=== PATIENT | female | born 1995 | race Caucasian/White ===

== ENCOUNTER → 2018-05-05 14:38 | Outpatient (CLI) | payer OTHER, SELFPAY ==
[2018-05-05 14:43] LABS: Mucous, Urine 0 SEEN /hpf (<or=2+); Red Blood Cells-Urine 0 SEEN /hpf (0-5)
[2018-05-05 16:10] LABS: Absolute Lymphocyte Count 3.09 X10^3/ul (0.83-4.51); Absolute Neutrophil Count 6.2 X10^3/uL (2.0-7.7); Basophil# 0.03 X10^3/uL; Basophil% 0.3 % (0-1); Eosinophil# 0.31 X10^3/uL; Hematocrit 40.4 % (37-47); Hemoglobin 13.6 g/dl (12.0-15.0); Lymphocyte # 3.09 X10^3/ul (4.0); Lymphocyte % 29.7 % (19-41); Mean Corp Hgb Conc 33.7 g/gl (32-36); Mean Corpuscular Hgb 29.7 pg (27.0-32.0); Mean Corpuscular Volume 88.2 fL (81-99); Mean Platelet Vol. 10.1 fl (6.2-12.0); Monocyte# 0.77 X10^3/uL; Monocyte% 7.4 % (0-10); Neutrophil # 6.18 X10^3/uL (2.7-7.7); Neutrophil % 59.3 % (47-70); Platelet Count 337 K/mm3 (150-450); RBC Distribution Width CV 11.7 % (11.6-14.6); RBC Distribution Width SD 37.2 fl (35.1-43.9); Red Blood Count 4.58 M/mm3 (4.2-5.4); White Blood Count 10.4 K/mm3 (4.4-11.0)
[2018-05-05 16:15] LABS: POSITIVE COUNT NO; POSITIVE DIFFERENTIAL NO; POSITIVE MORPHOLOGY NO
[2018-05-05 16:37] LABS: Vitamin B12 446 pg/mL (211-911); Vitamin D,25 Hydroxy 12.8 ng/mL (29.95-100.01)
[2018-05-05 16:39] LABS: ALB/GLOB Ratio 0.9 RATIO (0.9-2.4); AST(SGOT) 12 U/L (15-37); Alanine Aminotransfer ALT/SGPT 31 U/L (13-56); Albumin, Serum 3.6 g/dL (3.2-5.0); Alkaline Phosphatase 79 U/L (45-117); Anion Gap 7 (5-15); BUN 16 mg/dL (7-18); Calcium,Total 8.9 mg/dL (8.5-10.1); Chloride 107 mmol/L (98-107); Cholesterol 183 mg/dL (200); Creatinine, Serum 0.64 mg/dL (0.55-1.02); EST Glomerular Filtration Rate 121 mL/min (>60); Est Glom Filt Rate - Afr Amer 146 mL/min (>60); Globulin 4.1 g/dL (2.2-4.2); Glucose 95 mg/dL (74-106); High Density Lipoprotein 42 mg/dL; Potassium 3.8 mmol/L (3.5-5.1); Protein, Total 7.7 g/dL (6.4-8.2); Sodium Level 139 mmol/L (136-145); Thyroid Stim Hormone (TSH) 2.73 uIU/mL (0.358-3.74); Triglycerides 205 mg/dL; Very Low Density Lipoprotein 41 mg/dL (5-40)
[2018-05-05 16:52] LABS: Color, Urine Yellow (Yellow); Glucose, Dipstick Normal (Normal); Ketone-Dipstick Negative (Negative); Leukocyte Esterase-Dipstick Negative /ul (Negative); Nitrite-Dipstick Negative (Negative); Occult Blood-Urine Negative /ul (Negative); Protein-Dipstick Negative (Negative); Urine Bilirubin Dipstick Negative (Negative); Urine Clarity Clear (Clear); Urine Urobilinogen Normal (Normal); Urine pH 6.5 (5.0 - 8.0)
[2018-05-05 17:03] LABS: Hemoglobin A1c 5.5 % (4.2-6.3)
[2018-05-05 17:32] LABS: Bacteria 1+ /hpf (None Seen); Squamous Epithelial Cells - UA 0-5 SEEN /hpf (5-10); White Blood Cells 0-5 SEEN /hpf (0-5)
== END ==
PROVIDERS: Family Provider Family Medicine; PCP Family Medicine; Visit Provider Family Medicine
DX: E66.9 Obesity, unspecified (principal); R03.0 Elevated blood-pressure reading, without diagnosis of hypertension; R53.83 Other fatigue
CPT/HCPCS: 36415; 80053; 80061; 81001; 82306; 82607; 83036; 84443; 85025

== ENCOUNTER → 2018-07-21 20:03 | Outpatient (CLI) | payer OTHER, SELFPAY | LOC: SL 20:03 | PROVIDERS: Family Provider Family Medicine; PCP Family Medicine; Visit Provider Internal Medicine Critical Care Medicine | DX: G47.10 Hypersomnia, unspecified (principal); R29.818 Other symptoms and signs involving the nervous system; R06.09 Other forms of dyspnea | CPT/HCPCS: 95810 ==

== ENCOUNTER → 2018-09-07 09:49 | Outpatient (CLI) | payer OTHER, SELFPAY ==
--- NOTE | 2018-09-07 12:34 | PFT ---
INTRODUCTION: The patient is a 23-year-old female that presents for pulmonary function testing secondary to a diagnosis of dyspnea. Respiratory therapy reports good patient effort. Bronchodilators were used during testing. INTERPRETATION: Forced expiration spirometry demonstrates no evidence of a large airways obstructive ventilatory defect. There was no significant response to aerosolized bronchodilators, based upon strict ATS criteria. Spirograms are of good quality and plateau normally. Body plethysmography was performed and reveals lung volumes to be within normal limits. Diffusing capacity by single breath CO is mildly reduced at 63% of predicted. IMPRESSION: These pulmonary function studies demonstrate the presence of an isolated mild reduction in diffusing capacity, which could be related to an underlying pulmonary vascular disorder such as pulmonary hypertension. There are no previous pulmonary function studies available for comparison.
== END ==
PROVIDERS: Family Provider Family Medicine; PCP Family Medicine; Referring Provider Internal Medicine Critical Care Medicine; Visit Provider Internal Medicine Critical Care Medicine
DX: R06.09 Other forms of dyspnea (principal)
CPT/HCPCS: 94060; 94726; 94729

== ENCOUNTER → 2018-11-23 20:00 | Outpatient (CLI) | payer OTHER, SELFPAY | PROVIDERS: Family Provider Family Medicine; PCP Family Medicine; Referring Provider Nurse Practitioner Acute Care; Visit Provider Nurse Practitioner Acute Care | DX: G47.33 Obstructive sleep apnea (adult) (pediatric) (principal); R94.2 Abnormal results of pulmonary function studies | CPT/HCPCS: 95811 ==

== ENCOUNTER → 2019-02-22 | Outpatient (CLI) | payer OTHER, SELFPAY ==
[2018-12-20 09:03] VITALS: BMI 50.5
[2019-02-22 13:07] LABS: Vitamin D,25 Hydroxy 32.4 ng/mL (29.95-100.01)
== END | disposition home or self-care (01) ==
LOC: MFPLAB 11:09
PROVIDERS: Family Provider Family Medicine; PCP Family Medicine; Referring Provider Family Medicine; Visit Provider Family Medicine
DX: E55.9 Vitamin D deficiency, unspecified (principal)
CPT/HCPCS: 36415; 82306

== ENCOUNTER → 2019-06-08 | Outpatient (CLI) | payer OTHER, SELFPAY ==
[2019-04-05 10:42] VITALS: BMI 52.7
== END | disposition home or self-care (01) ==
LOC: MFPLAB 14:25
PROVIDERS: Family Provider Family Medicine; PCP Family Medicine; Referring Provider Family Medicine; Visit Provider Family Medicine
DX: E55.9 Vitamin D deficiency, unspecified (principal)
CPT/HCPCS: 36415; 82306

== ENCOUNTER → 2019-06-28 12:52 | Outpatient (CLI) | payer OTHER, SELFPAY ==
[2019-04-05 10:42] VITALS: BMI 52.7
--- NOTE | 2019-06-29 07:58 | PFT ---
INTRODUCTION: The patient is a 24-year-old female that presents for pulmonary function studies secondary to a diagnosis of MANUEL. Respiratory therapy reports good patient effort. Bronchodilators were used during testing. INTERPRETATION: Forced expiration spirometry demonstrates no evidence of a large airways obstructive ventilatory defect. There was no significant response to aerosolized bronchodilators. Spirograms are of good quality and plateau normally. Body plethysmography was performed and reveals a decrease TLC to 4.16 L, 84% of predicted, indicative of a mild restrictive ventilatory impairment. Diffusing capacity by single breath CO is moderately reduced at 57% of predicted. IMPRESSION: Isolated mild restrictive ventilatory impairment with disproportionate reduction in diffusing capacity.
== END ==
PROVIDERS: Family Provider Family Medicine; PCP Family Medicine; Referring Provider Internal Medicine Critical Care Medicine; Visit Provider Internal Medicine Critical Care Medicine
DX: G47.33 Obstructive sleep apnea (adult) (pediatric) (principal)
CPT/HCPCS: 94060; 94726; 94729

== ENCOUNTER → 2019-11-08 09:32 | Outpatient (CLI) | payer OTHER, SELFPAY ==
[2019-07-13 14:07] VITALS: BMI 52.7
[2019-11-08 12:46] LABS: Vitamin D,25 Hydroxy 20.4 ng/mL (29.95-100.01)
== END ==
PROVIDERS: PCP Family Medicine; Visit Provider Family Medicine
DX: E55.9 Vitamin D deficiency, unspecified (principal)
CPT/HCPCS: 36415; 82306

== ENCOUNTER → 2020-03-06 14:19 | Outpatient (CLI) | payer MEDICAID, SELFPAY ==
[2020-01-02 14:08] VITALS: BMI 52.7
[2020-03-06 18:09] LABS: T4 Free Direct 0.98 ng/dL (0.76-1.46)
[2020-03-09 00:47] LABS: Anti-Thyroglobulin AB < 1.0 IU/mL (0.0-0.9); Thyroglobulin, Serum Qt. 14.2 ng/mL (1.5-38.5); Thyroid Peroxidase AB < 9 IU/mL (0-34)
== END ==
PROVIDERS: PCP Family Medicine; Visit Provider Family Medicine
DX: E01.0 Iodine-deficiency related diffuse (endemic) goiter (principal)
CPT/HCPCS: 36415; 84432; 84439; 84443; 86376; 86800

== ENCOUNTER → 2020-03-16 15:59 | Outpatient (CLI) | payer MEDICAID, SELFPAY ==
[2020-01-02 14:08] VITALS: BMI 52.7
--- NOTE | 2020-03-16 16:06 | US_ITS ---
STUDY: THYROID ULTRASOUND REASON FOR EXAM: Female, 25 years old. THYROMEGALY ON EXAM TECHNIQUE: Ultrasound evaluation of the thyroid was performed with real-time and static barber-scale imaging. COMPARISON: None. FINDINGS: RIGHT LOBE: The right lobe of the thyroid gland is mildly enlarged and measures 5.1 cm x 2.1 cm x 2 cm. There is a heterogeneous echotexture. There are no demonstrated solid, cystic or complex lesions. LEFT LOBE: The left lobe of the thyroid gland is slightly enlarged and measures 5 cm x 1.9 cm x 1.5 cm. There is a heterogeneous echotexture. There are no demonstrated solid, cystic or complex lesions. ISTHMUS: The isthmus measures 2.0 mm. The regional lymph nodes are normal. US/Thyroid IMPRESSION: Mildly enlarged heterogeneous thyroid gland. Electronically Signed: Zackary Mathias, at 8:50 EDT , Service support ,
== END ==
PROVIDERS: PCP Family Medicine; Referring Provider Family Medicine; Visit Provider Family Medicine
DX: E01.0 Iodine-deficiency related diffuse (endemic) goiter (principal)
CPT/HCPCS: 76536

== ENCOUNTER 2020-08-16 11:11 | Emergency (ER) | payer MEDICAID, SELFPAY ==
[2020-01-02 14:08] VITALS: BMI 52.7
[2020-08-16 11:13] VITALS: BP 174/96; PULSE 62; RESP 15; TEMP 36.2; O2SAT 98; BMI 40.4
--- NOTE | 2020-08-16 11:27 | ED.VIS.GEN ---
History of Present Illness Chief Complaint: Abd Pain Informant: Patient Onset: Yesterday Current Severity: Mild Maximum Severity: Moderate Narrative: Patient presents secondary to epigastric abdominal pain. She states she woke at 2 AM yesterday morning with pain in her epigastrium. During the day pain was shooting into her back. She was able to eat yesterday and states food did not really change her pain. She has not had much of an appetite and has not eaten today. She had 2 episodes of vomiting, nonbloody and nonbilious. She denies diarrhea. No fever or chills. She denies history of gallbladder problems or any prior problems with her pancreas. She does not drink alcohol. - Past Medical History (1) Anxiety and depression Status: Chronic (2) Asthma Status: Chronic (3) MANUEL (obstructive sleep apnea) Status: Chronic Comment: BiPAP 10/6 cmH2O Past Medical History - Allergies and Home Meds Allergies/Adverse Reactions: Allergies No Known Allergies Allergy (Verified 08/16/20 11:12) Primary Care Physician: Dalton Chanel MD [Primary Care Provider] - Prior records reviewed: Yes Lives: Spouse/ Significant Other Smoking Status: Former smoker Review of Systems General: Denies: Chills, Fever Eyes: Denies: Visual changes - bilaterally ENT: Denies: Bilateral ear pain Cardiovascular: Denies: Chest pain Respiratory: Denies: Dyspnea, Cough Gastrointestinal: Reports: Abdominal pain, Nausea, Vomiting. Denies: Diarrhea Genitourinary: Denies: Dysuria Musculoskeletal: Denies: Swelling, Extremity Pain Skin: Denies: Rash Hematologic: Denies: Easy bruising, Easy bleeding Allergy: Denies: Uticaria Physical Exam Vital Signs/Narrative: Vital Signs Temp Pulse Resp BP Pulse Ox 08/16/20 11:13 97.2 F L 62 15 174/96 H 98 Inital Vital Signs reviewed: Yes General: Well nourished, Well developed Head: Normocephalic ENT: Moist mucous membranes Neck: Supple Cardiovascular: Regular rate, Regular rhythm Respiratory: No distress, CTA bilaterally Abdomen: Soft, Normal bowel sounds, Tender - Minimal tenderness in the epigastrium.. Negative for: Guarding, Rebound tenderness Back: Nontender Extremities: Nontender Skin: Normal color Neurological: Alert, Oriented x3 Psychological: Normal affect Diagnostic/Tx/Re-eval Laboratory Results 08/16/20 08/16/20 11:30 11:30 WBC 10.7 RBC 4.93 Hgb 14.2 Hct 42.5 MCV 86.2 MCH 28.8 MCHC 33.4 RDW Std Deviation 35.8 RDW Coeff of [place] 11.3 L Plt Count 367 MPV 9.3 Immature Gran % (Auto) 0.400 Neut % (Auto) 74.4 H Lymph % (Auto) 17.7 L Cherry % (Auto) 5.8 Eos % (Auto) 1.4 Baso % (Auto) 0.3 Absolute Neuts (auto) 8.0 H Absolute Lymphs (auto) 1.89 Nucleated RBC % 0 Sodium 139 Potassium 3.8 Chloride 106 Carbon Dioxide 27.0 Anion Gap 6 BUN 8 Creatinine 0.77 Estim Creat Clear Calc 91.59 Est GFR (MDRD) Af Amer 116 Est GFR (MDRD) Non-Af 96 BUN/Creatinine Ratio 10.3 Glucose 121 H Calcium 9.5 Total Bilirubin 0.30 Direct Bilirubin 0.10 AST 13 L ALT 41 Alkaline Phosphatase 89 Total Protein 8.0 Albumin 3.8 Globulin 4.2 Lipase 44 L - Medical Decision Making Patient was given IV dose of Protonix here. Repeat evaluation she is complaining of some back pain will be given a single dose of [place] here. We will start her on antacids at home. She will take Tylenol to help control pain. Return instructions are provided. ED Disposition - Plan for ED Patient: Disposition: Home or Assisted Living Diagnosis: Epigastric pain Instructions: ED Epigastric Pain [facility] Prescriptions: Omeprazole [Prilosec] 20 mg PO DAILY #30 cap Transmission Status: Pending to [id number] Referrals: Dalton Chanel MD [Primary Care Provider] - 1 Week if not improving
[2020-08-16 11:52] LABS: Absolute Lymphocyte Count 1.89 X10^3/uL (0.83-4.51); Basophil# 0.03 X10^3/uL; Basophil% 0.3 % (0-1); Eosinophil# 0.15 X10^3/uL; Eosinophils% 1.4 % (0-5); Hematocrit 42.5 % (37-47); Hemoglobin 14.2 g/dL (12.0-15.0); Lymphocyte # 1.89 X10^3/ul (4.0); Lymphocyte % 17.7 % (19-41); Mean Corp Hgb Conc 33.4 g/dL (32-36); Mean Corpuscular Hgb 28.8 pg (27.0-32.0); Mean Corpuscular Volume 86.2 fL (81-99); Mean Platelet Vol. 9.3 fl (6.2-12.0); Monocyte# 0.62 X10^3/uL; Monocyte% 5.8 % (0-10); NRBC Flagged by Analyzer 0 % (0-5); Neutrophil # 7.97 X10^3/uL (2.7-7.7); Neutrophil % 74.4 % (47-70); Platelet Count 367 K/mm3 (150-450); RBC Distribution Width CV 11.3 % (11.6-14.6); RBC Distribution Width SD 35.8 fl (35.1-43.9); Red Blood Count 4.93 M/mm3 (4.2-5.4); White Blood Count 10.7 K/mm3 (4.4-11.0)
[2020-08-16 11:54] LABS: AST(SGOT) 13 U/L (15-37); Alanine Aminotransfer ALT/SGPT 41 U/L (13-56); Albumin, Serum 3.8 g/dL (3.2-5.0); Alkaline Phosphatase 89 U/L (45-117); Anion Gap 6 (5-15); BUN 8 mg/dL (7-18); BUN/Creat Ratio 10.3 RATIO (10-20); Calcium,Total 9.5 mg/dL (8.5-10.1); Chloride 106 mmol/L (98-107); Creatinine, Serum 0.77 mg/dL (0.55-1.02); EST Glomerular Filtration Rate 96 mL/min (>60); Est Glom Filt Rate - Afr Amer 116 mL/min (>60); Estimated Creatinine Clearance 91.59 ml/min; Globulin 4.2 g/dL (2.2-4.2); Glucose 121 mg/dL (74-106); Lipase 44 U/L (73-393); Potassium 3.8 mmol/L (3.5-5.1); Sodium Level 139 mmol/L (136-145)
[2020-08-16] MEDS: 0.9% Normal Saline 1,000 ML 150 ML IV (12:14)
[2020-08-16] MEDS: HYDROcodone Bitartrate/Apap 5/325 Tablet PO (12:51)
[2020-08-16 12:53] VITALS: BP 132/88; PULSE 75; RESP 16; O2SAT 97
== END 2020-08-16 12:54 | disposition home or self-care (01) ==
PROVIDERS: Emergency Provider Emergency Medicine; PCP Family Medicine
DX: R10.13 Epigastric pain (principal); M54.9 Dorsalgia, unspecified; R11.2 Nausea with vomiting, unspecified; F41.9 Anxiety disorder, unspecified; F32.9 Major depressive disorder, single episode, unspecified; G47.33 Obstructive sleep apnea (adult) (pediatric); J45.909 Unspecified asthma, uncomplicated; Z79.899 Other long term (current) drug therapy; Z87.891 Personal history of nicotine dependence
CPT/HCPCS: 80048; 80076; 83690; 85025; 99282; J7030; A4216

== ENCOUNTER → 2020-08-17 16:09 | Outpatient (CLI) | payer MEDICAID, SELFPAY ==
[2020-08-16 11:13] VITALS: BMI 40.4
--- NOTE | 2020-08-17 16:34 | US_ITS ---
STUDY: ABDOMINAL ULTRASOUND - RIGHT UPPER QUADRANT REASON FOR VISIT: Female, 25 years old. Right upper quadrant pain for 3 days, vomiting TECHNIQUE: Ultrasound evaluation of the right upper quadrant was performed with real-time and static barber-scale imaging. TECHNICAL QUALITY: Adequate. COMPARISON: None. FINDINGS: Liver: The liver measures 20.8 cm. There is increased echogenicity of the liver. The bile ducts are within normal limits. There is hepatic color flow. The direction of portal flow is hepatopetal. There is no demonstrated mass lesion. Gallbladder: Normal distended gallbladder. The gallbladder wall measures 4.5 mm. There is a positive sonographic Carter''s sign. There is mild pericholecystic fluid. There are multiple gallstones Common Bile Duct (C.B.D.): The common bile duct measures 5 mm. Pancreas: Not well visualized due to gas obscuration Right Kidney: Normal size of the right kidney. The right kidney measures 11.6 x 6.7 x 4.8 cm. Normal renal cortex. The right cortex measures 1.5 cm. There is no demonstrated renal mass or cyst. There is no right hydronephrosis. US/Abdomen Limited IMPRESSION: 1. Cholecystitis and cholecystolithiasis. No biliary dilation. 2. Hepatic steatosis. Electronically Signed: Lenard José, at 17:55 EDT Tel , Service support ,
== END ==
PROVIDERS: PCP Family Medicine; Referring Provider Family Medicine; Visit Provider Family Medicine
DX: R10.11 Right upper quadrant pain (principal)
CPT/HCPCS: 76705

== ENCOUNTER 2020-08-17 19:24 | Inpatient (IN) | payer MEDICAID, SELFPAY ==
[2020-08-16 11:13] VITALS: BMI 40.4
[2020-08-17 19:25] VITALS: BP 197/92; PULSE 114; RESP 20; TEMP 36.8; O2SAT 98; BMI 51.3
[2020-08-17 19:48] LABS: Absolute Lymphocyte Count 1.61 X10^3/uL (0.83-4.51); Basophil# 0.05 X10^3/uL; Basophil% 0.3 % (0-1); Eosinophil# 0.18 X10^3/uL; Eosinophils% 1.1 % (0-5); Hematocrit 41.5 % (37-47); Hemoglobin 13.5 g/dL (12.0-15.0); Lymphocyte # 1.61 X10^3/ul (4.0); Lymphocyte % 10.1 % (19-41); Mean Corp Hgb Conc 32.5 g/dL (32-36); Mean Corpuscular Hgb 28.5 pg (27.0-32.0); Mean Corpuscular Volume 87.6 fL (81-99); Mean Platelet Vol. 9.3 fl (6.2-12.0); Monocyte# 0.96 X10^3/uL; NRBC Flagged by Analyzer 0 % (0-5); Neutrophil # 13.03 X10^3/uL (2.7-7.7); Neutrophil % 82.1 % (47-70); Platelet Count 341 K/mm3 (150-450); RBC Distribution Width CV 11.5 % (11.6-14.6); RBC Distribution Width SD 36.8 fl (35.1-43.9); Red Blood Count 4.74 M/mm3 (4.2-5.4); White Blood Count 15.9 K/mm3 (4.4-11.0)
[2020-08-17] MEDS: 0.9% Normal Saline 1,000 ML 1000 ML IV (19:56)
[2020-08-17] MEDS: Morphine 4 MG/ML Syringe IV (19:56)
[2020-08-17] MEDS: Ondansetron 4 MG/2 ML Vial IV (19:56)
--- NOTE | 2020-08-17 19:58 | ED.DCSUM_ITS ---
History of Present Illness Chief Complaint: Abd Pain Informant: Patient Onset: Yesterday Context: Gradual Onset Timing: Continuous Current Severity: Moderate Maximum Severity: Moderate Narrative: Patient is a 25-year-old female with history of depression who presents to the emergency department abdominal pain. The patient's pain started Thursday. She said it was mostly in the midepigastric area. It was worse after eating. She was seen here yesterday morning. At that time, she had an unremarkable work-up. She states after discharge, her pain continued to worsen and migrated to her right upper quadrant. She followed with her primary care today. Outpatient ultrasound was done which showed evidence of cholecystitis. The patient was sent here for further evaluation. She denies fevers but does admit to nausea. She has no history of prior abdominal surgery. Prior similar symptoms: Yes Recent Illness/Hospitalization: No Past Medical History - Allergies and Home Meds Allergies/Adverse Reactions: Allergies No Known Allergies Allergy (Verified 08/17/20 19:24) Primary Care Physician: Dalton Chanel MD [Primary Care Provider] - Prior records reviewed: Yes Past Medical History: - - Depression, sleep apnea Surgical History: noncontributory Smoking Status: Current some day smoker Review of Systems General: Denies: Chills, Fever, Sweats Eyes: Denies: Visual changes - bilaterally, Diplopia ENT: Denies: Rhinorrhea, Sore throat Cardiovascular: Denies: Chest pain, Palpitations Respiratory: Denies: Dyspnea, Cough, Dyspnea on exertion Gastrointestinal: Reports: Abdominal pain, Nausea. Denies: Vomiting, Diarrhea, Melena, Hematochezia Genitourinary: Denies: Dysuria, Hematuria, Frequency Musculoskeletal: Denies: Back pain, Extremity Pain Skin: Denies: Rash, Wounds Neurological: Denies: Headache, Weakness, Numbness Physical Exam Vital Signs/Narrative: Vital Signs Temp Pulse Resp BP Pulse Ox 08/17/20 19:25 98.3 F 114 H 20 H 197/92 H 98 Inital Vital Signs reviewed: Yes General: Well nourished, Well developed, No Acute Distress Head: Normocephalic, Atraumatic Eyes: Perrl, EOMI ENT: Moist mucous membranes, No rhinorrhea Neck: Supple, Nontender Cardiovascular: Regular rate, Regular rhythm, No murmurs Respiratory: No distress, CTA bilaterally, Chest nontender Abdomen: Soft, Nondistended, Normal bowel sounds, Tender, Carter's sign Back: Nontender, Normal Inspection Extremities: Nontender, No edema Skin: Normal color, No rash Neurological: Alert, Oriented x3, Cranial nerves II-XII grossly intact, Normal Strength, Normal Sensation Psychological: Normal affect, Normal Mood Diagnostic/Tx/Re-eval Abnormal Lab Results 08/17/20 08/17/20 08/17/20 19:40 19:40 19:40 WBC 15.9 H RBC 4.74 Hgb 13.5 Hct 41.5 MCV 87.6 MCH 28.5 MCHC 32.5 RDW Std Deviation 36.8 RDW Coeff of Katy 11.5 L Plt Count 341 MPV 9.3 Immature Gran % (Auto) 0.400 Neut % (Auto) 82.1 H Lymph % (Auto) 10.1 L [place] % (Auto) 6.0 Eos % (Auto) 1.1 Baso % (Auto) 0.3 Absolute Neuts (auto) 13.0 H Absolute Lymphs (auto) 1.61 Nucleated RBC % 0 Sodium 137 Potassium 3.6 Chloride 104 Carbon Dioxide 25.0 Anion Gap 8 BUN 9 Creatinine 0.88 Estim Creat Clear Calc 80.14 Est GFR (MDRD) Af Amer 100 Est GFR (MDRD) Non-Af 83 BUN/Creatinine Ratio 10.3 Glucose 214 H Calcium 9.2 Total Bilirubin 0.50 AST 10 L ALT 29 Alkaline Phosphatase 86 Total Protein 7.9 Albumin 3.5 Globulin 4.4 H Albumin/Globulin Ratio 0.8 L Lipase 127 Serum , Qual NEGATIVE - Medical Decision Making Patient presents with right upper quadrant pain. Outpatient ultrasound was rev iewed. It does show evidence of acute cholecystitis. I did discuss the patient promptly with Dr. Johnson, on-call for surgery. Patient was covered with broad- spectrum antibiotics. The plan will be to admit for pain control and antibiotics with surgery tomorrow. The patient is comfortable with this plan of care. Impression 1. Acute cholecystitis ED Disposition - Plan for ED Patient: Referrals: Dalton Chanel MD [Primary Care Provider] -
[2020-08-17 20:05] LABS: ALB/GLOB Ratio 0.8 RATIO (0.9-2.4); AST(SGOT) 10 U/L (15-37); Alanine Aminotransfer ALT/SGPT 29 U/L (13-56); Albumin, Serum 3.5 g/dL (3.2-5.0); Alkaline Phosphatase 86 U/L (45-117); Anion Gap 8 (5-15); BUN 9 mg/dL (7-18); BUN/Creat Ratio 10.3 RATIO (10-20); Calcium,Total 9.2 mg/dL (8.5-10.1); Chloride 104 mmol/L (98-107); Creatinine, Serum 0.88 mg/dL (0.55-1.02); EST Glomerular Filtration Rate 83 mL/min (>60); Est Glom Filt Rate - Afr Amer 100 mL/min (>60); Estimated Creatinine Clearance 80.14 ml/min; Globulin 4.4 g/dL (2.2-4.2); Glucose 214 mg/dL (74-106); Lipase 127 U/L (73-393); Potassium 3.6 mmol/L (3.5-5.1); Protein, Total 7.9 g/dL (6.4-8.2); Sodium Level 137 mmol/L (136-145)
[2020-08-17 20:16] LABS: Internal QC Validated? YES +Cl - CLEAR BKGD; Pregnancy, Serum, hCG Quali. NEGATIVE Negative
[2020-08-17 21:30] VITALS: BP 177/94; PULSE 96; RESP 18; TEMP 35.7; O2SAT 99
[2020-08-17 21:57] VITALS: BMI 50.3
[2020-08-17 22:01] VITALS: BP 164/80; PULSE 99; RESP 18; TEMP 37.2; O2SAT 99
[2020-08-17 22:10] VITALS: BMI 50.4
[2020-08-17] MEDS: Lactated Ringers 1,000 ML 125 ML IV (22:35)
[2020-08-18] VITALS (13 sets, daily range): BP systolic 125–145; BP diastolic 75–104; PULSE 80–122; RESP 16–18; TEMP 36.8–37.6; O2SAT 91–100; BMI 50.3
--- NOTE | 2020-08-18 01:12 | EKG12_ITS ---
Test Reason : PRE-OP Blood Pressure : / mmHG Vent. Rate : 100 BPM Atrial Rate : 100 BPM P-R Int : 136 ms QRS Dur : 080 ms QT Int : 356 ms P-R-T Axes : 042 019 036 degrees QTc Int : 459 ms Normal sinus rhythm Normal ECG Confirmed by CASSIE ARTEAGA, KATYA ([id number]), mapping editor MAX RAMIREZ ([id number]) on 08/22/2020 10:50:40 AM Referred By: DR BLANCO Confirmed By:KATYA MATTHEWS MD
[2020-08-18] MEDS: Morphine 4 MG/ML Syringe IV ×4 (01:33→17:40)
[2020-08-18] MEDS: 0.9% Saline Lock 10 ML Syringe IV ×3 (01:33→17:40)
[2020-08-18] MEDS: Lactated Ringers 1,000 ML 125 ML IV ×3 (05:45→17:49)
[2020-08-18 09:08] LABS: Absolute Lymphocyte Count 2.29 X10^3/uL (0.83-4.51); Absolute Neutrophil Count 8.5 X10^3/uL (2.0-7.7); Basophil# 0.05 X10^3/uL; Basophil% 0.4 % (0-1); Eosinophil# 0.36 X10^3/uL; Eosinophils% 2.9 % (0-5); Hemoglobin 12.7 g/dL (12.0-15.0); Lymphocyte # 2.29 X10^3/ul (4.0); Lymphocyte % 18.6 % (19-41); Mean Corp Hgb Conc 31.8 g/dL (32-36); Mean Corpuscular Hgb 28.3 pg (27.0-32.0); Mean Corpuscular Volume 89.1 fL (81-99); Mean Platelet Vol. 9.5 fl (6.2-12.0); Monocyte# 1.04 X10^3/uL; Monocyte% 8.5 % (0-10); NRBC Flagged by Analyzer 0 % (0-5); Neutrophil # 8.52 X10^3/uL (2.7-7.7); Neutrophil % 69.3 % (47-70); Platelet Count 288 K/mm3 (150-450); RBC Distribution Width CV 11.7 % (11.6-14.6); RBC Distribution Width SD 37.5 fl (35.1-43.9); Red Blood Count 4.49 M/mm3 (4.2-5.4); White Blood Count 12.3 K/mm3 (4.4-11.0)
[2020-08-18 09:33] LABS: Anion Gap 6 (5-15); BUN 7 mg/dL (7-18); BUN/Creat Ratio 12.2 RATIO (10-20); Calcium,Total 9.1 mg/dL (8.5-10.1); Chloride 107 mmol/L (98-107); Creatinine, Serum 0.58 mg/dL (0.55-1.02); EST Glomerular Filtration Rate 134 mL/min (>60); Est Glom Filt Rate - Afr Amer 162 mL/min (>60); Estimated Creatinine Clearance 121.59 ml/min; Glucose 107 mg/dL (74-106); Sodium Level 137 mmol/L (136-145)
--- NOTE | 2020-08-18 10:58 | PCM.HP.BLA ---
History and Physical Date of Admission: 08/17/20 Chief Complaint: abdominal pain History of Present Illness: 25 y/o WF with super morbid obesity - BMI >51 - presents with abdominal pain. She states that she had sudden onset at 08/15. She states that it is primarily in the epigastric area. She was seen in the ED on 08/16 and then discharged to home. She underwent US on 08/17/2020 - and findings of thickened gallbladder wall with pericholecystic fluid and multiple gallstones - c/w cholecystitis. She went to the ED on 08/17/2020, still with abdominal pain - WBC was 15.9k on admission with left shift of differential. Normal LFT's. She denies biliary obstructive signs such as jaundice or icterus. Has nausea but denies emesis. She has not had previous abdominal surgery. Past Medical History: MANUEL morbid obesity Past Surgical History: Tonsillectomy ear tubes placement Medications: sertraline omprazole abilify Allergies: Has no known drug allergies Social history: TOB use denies Lives with Review of Systems: General - denies fevers, denies weight loss, denies anorexia Cardiovascular denies chest pain, denies history of heart attack Pulmonary followed by pulmonary clinic for MANUEL and abnormal PFTs felt to be due to patient's body habitus Gastrointestinal as per HPI, denies swallowing problems Neurological has occasional headaches, denies numbness/weakness of extremities, denies seizures Genitourinary denies burning with urination, denies blood in urine Hematological denies spontaneous/prolonged bleeding Skin denies open non healing wounds Musculoskeletal denies history of fractures, denies arthritis Endocrine denies diabetes, no thyroid problems, is super morbidly obese Psychological denies hallucinations Physical examination: Vital signs Temp 98.2F but presently 99/6F HR 101 BP 125/80 RR 16 General WD/WN WF in no apparent distress, alert and oriented, not septic appearing Head Normocephalic. EOM intact with sclera clear and no icterus noted. Neck is supple with no jugular venous distention noted. Trachea is midline. Lungs normal breath sounds. No rales/rhonchi/wheezing noted. No labored breathing noted, such as retractions. No cough heard. Heart normal heart sounds. No rubs/clicks/murmurs noted. regular . Abdomen soft but tender in epigastrium and right upper quadrant with Carter's signs, difficult to determine if any masses due to body habitus Extremities no calf tenderness noted. No pitting edema noted. Genitourinary/Rectal deferred Skin normal skin integrity. Neurological non focal. Psychological normal affect, patient is calm and appropriate Impression: acute cholecystitis with cholelithiasis Discussion/Plan: I have discussed the above with the patient. I have offered the patient the procedure of laparoscopic cholecystectomy. I have explained the procedure to the patient. I have counseled the patient as to the risks of the procedure, including but not limited to: infection, bleeding, injury to any blood vessels/nerves, scar tissue, injury to any intraabdominal organs, injury to kidney/ureters, injury to bowel/bladder, injury to the common bile duct/biliary tree, bile leakage, intraabdominal abscess/bleeding, hernias at incisional sites, wound infections, possible open procedure, complications of anesthesia, postoperative pneumonia/cardiac problems/blood clots etc. the patient understands. The patient was offered a surgery/procedure. The provider and patient have discussed in detail the risk of exposure to and/or potential harm posed by the COVID-19 virus with having a surgery/procedure at this time versus the risk of delaying the surgery/procedure. It is not possible to know either the risk of delaying the surgery or procedure or chance of getting an infection with perfect accuracy, but a joint decision was made between the patient and the provider to proceed at this time with the scheduled surgery/procedure. She wishes to proceed I have answered all questions to the patient?s satisfaction and the patient has no further questions.
--- NOTE | 2020-08-18 11:28 | NURSING ---
Pt being transported to surgery via bed at this time.
--- NOTE | 2020-08-18 11:37 | NURSING ---
Off unit to OR.
--- NOTE | 2020-08-18 12:00 | GALL_PTH ---
PATIENT: FLORENCIA VILLARREAL LOC: [facility]3 U#:[id number] AGE/SX: 25/F ROOM: MS319 RE08/17/[address]: Dr. Stephanie Johnson MD : [id number] BED: 1 DIS: 08/19/2020 SPEC #: [id number] RECD: 08/19/20 10:31 STATUS: TAYLOR REKaleb #: [id number] PRABHAKAR: 08/18/20 12:[address]: Stephanie Johnson DEPT: SURGICAL PATHOLOGY RECD BY: Judy Santana ENTERED: 08/20/20 08:21 SP TYPE: CAMERON AVENDANO DR: Dr. Dalton Chanel MD Tissues: Gallbladder, NOS Procedures: Surgery Specimen Level III HEADER OPERATION: Laparoscopic cholecystectomy converted to open PRE-OP DIAGNOSIS: Acute cholecystitis with cholelithiasis TISSUE SUBMITTED: Gallbladder MICROSCOPIC DIAGNOSIS Gallbladder, cholecystectomy: Acute and chronic cholecystitis with denudation of the mucosa and cholelithiasis. AM:adele 08/21/20 MICROSCOPIC DESCRIPTION Slides are reviewed. GROSS DESCRIPTION Received is one container labeled with the patient's name and designated gallbladder. The specimen consists of a gallbladder in multiple pieces. The largest piece of gallbladder measures 6 cm in length and 3 cm in diameter. The smaller pieces measure in aggregate 5 x 5 x 2 cm. The serosa is congested and hemorrhagic. The mucosa is also congested and hemorrhagic. Also present in the container are multiple, multifaceted, greenish-brown stones measuring in aggregate 4 x 3.5 x 1.5 cm and 0.5 to 1.2 cm in diameter. Sections of the gallbladder wall reveal congested and hemorrhagic cut surfaces. The gallbladder wall measures up to 1 cm in thickness. Some of the stones are embedded in the gallbladder wall. Obvious cystic duct is not identified. [place] sections are submitted in two cassettes. / SJ:adele 08/20/20 TC:2 CPT: 51504
--- NOTE | 2020-08-18 12:55 | CASEMGMT ---
RN CM attempted to complete RN CM assessment at this time. Patient is out of room and at surgery. Will attempt again at a later time.
[2020-08-18] MEDS: Bupiv/Epi 0.25% 30 ML Vial (14:00)
--- NOTE | 2020-08-18 14:32 | PCM.OPRPT ---
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 Appropriate time out protocol was followed. The patient was placed in the supine position. The patient was then placed under general endotracheal anesthesia by the anesthesia provider. The abdomen was then prepped with a sterile surgical skin preparation and sterile surgical drapes were placed. An area superior to the umbilical dimple was grasped with penetrating clamps and the skin and subcutaneous tissues were infiltrated with 0.25% marcaine with epinephrine. A skin incision was then made with a 15 blade scalpel. The anterior abdominal wall was elevated and a Veress needle was carefully inserted into the intraabdominal cavity. It was checked to be in the proper position with a normal saline drop test. A CO2 pneumoperitoneum was then created. Once this was achieved, then the Veress needle was removed and an 11mm trocar was placed in its stead. A 10mm laparoscope was then inserted into the trocar and careful attention was directed to the intraabdominal contents. There was no evidence of injury to any intraabdominal organs from insertion of the Veress needle or the trocar. Under direct visualization, a 5mm subxiphoid trocar and two lateral 5mm right subcostal trocars were placed. The skin and subcutaneous tissues at these sites were infiltrated with 0.25% marcaine with epinephrine prior to placement of these trocars. Attention was then directed to the right upper quadrant of the abdomen. The gallbladder was grossly distended. There were omental adhesions to the free surface of the gallbladder. The wall was thickened and had inflammatory oozing. Findings were consistent with acute on chronic cholecystitis. Needle aspiration revealed hydrops. Graspers were placed in the lateral trocars to grasp the distal aspect of the gallbladder and direct it cephalad and to grasp the gallbladder laterally to direct it laterally. As stated, the gallbladder wall had inflammatory oozing and thus was difficult to grasp intermittently. The dense omental adhesions were taken down by blunt dissection. Dissection then was attempted to identify the area of the triangle of Calot. It was not able to be identifed due to the dense inflammation. Therefore dissection was attempted to delineate out the gallbladder on its lateral aspects. Dissection was done with electrocautery. Every attempt to dissect out the gallbladder wall resulted in a large amount of inflammatory bleeding. Therefore due to the amount of inflammation and the bleeding due to this, I aborted the laparoscopic procedure and proceeded to an open cholecystectomy for better control of bleeding. The right lower ribs were palpated out, and a right subcostal incision was made with a 10 blade scalpel and carried down to the subcutaneous tissues. Any hemorrhage was adequately controlled with electrocoagulation. The anterior abdominal fascia was then carefully divided with electrocautery. The right rectus abdominis muscle was then carefully divided and appropriate hemostatic control was applied to all blood vessels. The posterior fascial sheath and transversalis fascia was then divided thus entering into the abdominal cavity. This was carefully done to avoid any injury to any intra-abdominal organs. A Bookwalter retractor was used for increased operative exposure. Attention was then directed to the undersurface of the liver. The gallbladder was visualized. As stated previously, it appeared grossly edematous and distended and with thickened inflamed gallbladder wall. The gallbladder was grasped distally to retract it from the liver bed. It was dissected from the liver bed in a retrograde fashion using electrocautery. There was a large amount of inflammation with hemorrhagic oozing and as the gallbladder wall was thickened and parts of it were very densely inflamed. The posterior wall of the gallbladder was densely adherent to the liver bed which precluded its separation, therefore this portion of the gallbladder was left in situ. The gallbladder contents were loculated and hemorrhagic. The stones appeared to be embedded in the wall tissues. Hemostasis was controlled by pressure and electrocautery. Once the gallbladder was then from the liver bed (which required careful dissection and time), then blunt dissection was used on the proximal portion of the gallbladder in attempt to delineate the triangle of Calot. There was too much dense inflammation in this area. Therefore the Mandujano's pouch of the gallbladder was also left in situe. The mucosa of the gallbladder was cauterized. All stones that were palpated from within the gallbladder were removed. Ligaclips were placed on bleeding vessels. Once, the major portion of the gallbladder was removed and hemostasis was controlled, then surgicel was applied to the areas of inflammatory oozing. Electrocautery was applied to the mucosa of the gallbladder. The area was the vigorously irrigated with warmed normal saline and all irrigant was aspirated out. A 15 Fr round passive drain was placed in the gallbladder liver fossa and brought out through separate skin incision - one of the right lateral trocar sites. The drain was placed inferior to the liver. The peritoneum and transversalis fascia were then closed using a running 3-0 Vicryl suture. Closure was done carefully to avoid any entrapment of bowel or injury to bowel. The posterior fascia was closed using 0 PDS in a running continuous fashion. The anterior fascia was closed using 0 PDS in a running continuous fashion. The wound was irrigated with normal saline. The skin incision was reapproximated with subdermal vicryl suture and a subcuticular closure of 4-0 vicryl. The superior to the umbilical trocar site - the fascia was closed with a figure of 8, 0 vicryl suture. All other trocar sites skin incisions were reapproximated with 4-0 monocryl. Sterile dressings to all sites were then applied. The drain was sutured to the skin using 3-0 nylon suture. Sponge, instrument, and needle count were verified and correct. The patient was then extubated and brought to the Recovery Room in stable condition. - Complications none noted - Admit VTE Documentation VTE Present on Admission: Yes VTE Mechan Device Prophylaxis: SCD's
--- NOTE | 2020-08-18 17:10 | NURSING ---
Back to floor approximately one hour ago. This nurse having computer trouble and could not log on until now. Re-did vitals again, see intervention. Pt is a Positive STOP but we do not have any cords that hook to the telemonitors that will show the patient spo2 out here at the nurses station. This nurse put a continous spo2 machine from [facility] in the room and nursing will have to check on it periodically and it alarms when pt desats.
[2020-08-18] MEDS: Pantoprazole Sodium 20 MG Tablet PO (17:40)
[2020-08-18] MEDS: ARIPiprazole 2 MG Tablet PO (23:38)
[2020-08-19 01:21] VITALS: BP 136/78; PULSE 90; RESP 16; TEMP 37.1; O2SAT 93
[2020-08-19] MEDS: Lactated Ringers 1,000 ML 125 ML IV (02:49)
[2020-08-19 04:10] VITALS: BP 132/80; PULSE 89; RESP 16; TEMP 36.8; O2SAT 92
--- NOTE | 2020-08-19 07:58 | PCM.PN.SRG ---
Subjective: Patient tolerating liquids, states that pain meds controlling pain - Physical Exam Vitals/I&O's: Vital Signs Temp Pulse Resp BP Pulse Ox 98.3 F 89 16 132/80 H 92 08/19/20 04:10 08/19/20 04:10 08/19/20 04:10 08/19/20 04:10 08/19/20 04:10 Oxygen Flow Rate (L/min) 2 Oxygen Delivery Method Room Air Weight: 129 kg Body Mass Index (BMI) 50.3 Intake and Output for Last 24 Hours 08/17/20 08/18/20 08/19/20 23:59 23:59 22:59 Intake Total 1100 / 1100 2683.33 / 2683.33 1644.75 / 1644.75 Output Total 1260 / 1260 Balance 1100 / 1100 2633.33 / 2633.33 384.75 / 384.75 General: Alert, Oriented x3 HEENT: Atraumatic Oral: Moist Mucosa Neck: Supple Lungs: Normal air movement Abdomen: Soft, - - dressings intact, LINDSAY drain with serosanguinous output Microbiology Past 72 Hours 08/17/20 19:50 Mucosa - Nasopharyngeal - Final Laboratory Results 08/18/20 08:40: WBC 12.3 H, RBC 4.49, Hgb 12.7, Hct 40.0, MCV 89.1, MCH 28.3, MCHC 31.8 L, RDW Std Deviation 37.5, RDW Coeff of [place] 11.7, Plt Count 288, MPV 9.5, Immature Gran % (Auto) 0.300, Neut % (Auto) 69.3, Lymph % (Auto) 18.6 L, [place] % (Auto) 8.5, Eos % (Auto) 2.9, Baso % (Auto) 0.4, Absolute Neuts (auto) 8.5 H, Absolute Lymphs (auto) 2.29, Nucleated RBC % 0 08/18/20 08:40: Sodium 137, Potassium 4.0, Chloride 107, Carbon Dioxide 24.0, Anion Gap 6, BUN 7, Creatinine 0.58, Estim Creat Clear Calc 121.59, Est GFR (MDRD) Af Amer 162, Est GFR (MDRD) Non-Af 134, BUN/Creatinine Ratio 12.2, Glucose 107 H, Calcium 9.1 Current Medications Acetaminophen (Acetaminophen 325 Mg Tablet) 650 mg PO Q6H PRN PRN PRN Reason: Pain Score 1-3 Hydrocodone Bitart/Acetaminophen (Hydrocodone Bitartrate/Apap 5/325 Tablet) 1 tablet PO Q4H PRN PRN PRN Reason: Pain Score 1-5 Aripiprazole (Aripiprazole 2 Mg Tablet) 2 mg PO QHS ON LICENSE OF [facility] Last Admin: 08/18/20 23:38 Dose: 2 mg Documented by: Lactated Ringer's () 1,000 mls @ 125 mls/hr IV .Q8H ON LICENSE OF [facility] Last Admin: 08/19/20 02:49 Dose: 125 mls/hr Documented by: Piperacillin Sod/Tazobactam (Sod 3.375 gm/ Sodium Chloride) 50 mls @ 12.5 mls/hr IV Q8 ON LICENSE OF [facility] Last Admin: 08/19/20 05:36 Dose: 12.5 mls/hr Documented by: Sodium Chloride () 250 mls @ 15 mls/hr IV .[id number] PRN PRN Reason: Saline Flush Last Infusion: 08/19/20 05:36 Dose: 0 mls/hr Documented by: Sodium Chloride () 250 mls @ 15 mls/hr IV .[id number] PRN PRN Reason: Additional IVPB Infusion Influenza Virus Vaccine Quadrival (Influenza Vaccine (6mos+)/Pf 0.5 Ml Syringe) 0.5 ml IM .ONCE ONE Stop: 08/19/20 10:01 Morphine Sulfate (Morphine 4 Mg/Ml Syringe) 4 mg IV Q2H PRN PRN PRN Reason: Pain Score 4-10 Last Admin: 08/18/20 17:40 Dose: 4 mg Documented by: Ondansetron HCl (Ondansetron 4 Mg/2 Ml Vial) 4 mg IV Q8H PRN PRN PRN Reason: NAUSEA/VOMITING Pantoprazole Sodium (Pantoprazole Sodium 20 Mg Tablet) 20 mg PO BIDCM ON LICENSE OF [facility] Last Admin: 08/18/20 17:40 Dose: 20 mg Documented by: Sertraline HCl (Sertraline 100 Mg Tablet) 150 mg PO DAILY ON LICENSE OF [facility] Sodium Chloride (0.9% Saline Lock 10 Ml Syringe) 10 - 40 ml IV UD PRN PRN Reason: SALINE FLUSH Last Admin: 08/18/20 17:40 Dose: 10 ml Documented by: Medical Necessity - Tobacco Use Smoking Status: Former smoker Tobacco Use: Cigarettes Assessment/Plan All Active Problems (Last Reviewed 01/02/20 @ 14:20 by Mary Abdalla [employer] WORK[employer], [employer]) Herpes simplex (Acute) Dyspnea (Acute) History of placement of ear tubes (Resolved) History of tonsillectomy (Resolved) Fatigue (Resolved) POD#1 s/p open cholecystectomy Plan: d/c to home, follow up with me later this week for consideration of drain removal
--- NOTE | 2020-08-19 08:00 | DCINST_ITS ---
Discharge Diet: No Restrictions - drink plenty of fluids, avoid carbonated beverages for a few day, light diet when you go home - advance slowly as tolerated Discharge Activity: Return to Normal Activity, May not drive while taking narcotic pain medications. Return to work on:: 09/17/20 Lifting Restrictions: no lifting greater than 10 pounds for a month Call your doctor if your incision/area has: Continuous Slow Oozing, Foul Smelling Discharge Call your doctor if you observe: Fever of 101 or Higher Additional Instructions: Recommended pain control regimen - May take 600 mg ibuprofen (Motrin) and then in 3-4 hours, may take 650 mg acetaminophen (Tylenol), then in 3-4 hours may take 600 mg ibuprofen, then in 3- 4 hours may take 650 mg acetaminophen and so on for 2-3 days May take narcotic pain medication for pain that is not controlled by above and at night for comfort through the night Leave dressings in place - sponge bathe only until the drain is removed Empty drain as shown by the nurses - once or twice a day or as per needed Allergies/Adverse Reactions: Allergies No Known Allergies Allergy (Verified 08/17/20 19:24) Medications to take at Discharge sertraline 100 mg tablet 150 mg PO DAILY tab 07/13/19 Aripiprazole 2 mg PO QHS 08/16/20 Omeprazole [Prilosec] 20 mg PO BIDCM 08/17/20 Hydrocodone Bitart/Apap 5-325 [[place] 5MG-325MG] 1 tablet PO Q8H PRN PRN 5 Days #15 tablet 08/19/20 The following prescriptions were given: Hydrocodone Bitart/Apap 5-325 [[place] 5MG-325MG] 1 tablet PO Q8H PRN PRN 5 Days #15 tablet PRN Reason: Pain Score 4-10 Transmission Status: Sent to [id number] Primary Care Physician: Dalton Chanel MD [Primary Care Provider] - Test Results: Test results from this visit will be discussed in further detail at your follow- up appointment, if applicable. Please Follow Up With: Stephanie Johnson MD - When: to be seen on Aug 24, please call for a time
--- NOTE | 2020-08-19 08:04 | PCM.DC.BLA ---
Discharge Summary Date of Admission: 08/17/20 Date of Discharge: 08/19/20 Summary: Sherry is a 25 y/o WF who presents with acute cholecystitis as seen by US gallbladder. She underwent surgery on 08/18/2020 and findings of severe acute on chronic cholecystitis. Initially attempted laparoscopic approach, but then had to proceed to open cholecystectomy. Intraoperative drain placed. Patient tolerated procedure well. Postoperative recovery was unremarkable and she was discharged on POD#1. - Physical Exam Vitals/I&O's: Vital Signs Temp Pulse Resp BP Pulse Ox 98.3 F 89 16 132/80 H 92 08/19/20 04:10 08/19/20 04:10 08/19/20 04:10 08/19/20 04:10 08/19/20 04:10 Oxygen Flow Rate (L/min) 2 Oxygen Delivery Method Room Air Weight: 129 kg Body Mass Index (BMI) 50.3 Intake and Output for Last 24 Hours 08/17/20 08/18/20 08/19/20 23:59 23:59 22:59 Intake Total 1100 / 1100 2683.33 / 2683.33 1644.75 / 1644.75 Output Total 50 / 50 1260 / 1260 Balance 1100 / 1100 2633.33 / 2633.33 384.75 / 384.75 Microbiology Past 72 Hours 08/17/20 19:50 Mucosa - Nasopharyngeal - Final Laboratory Results 08/18/20 08:40: WBC 12.3 H, RBC 4.49, Hgb 12.7, Hct 40.0, MCV 89.1, MCH 28.3, MCHC 31.8 L, RDW Std Deviation 37.5, RDW Coeff of [place] 11.7, Plt Count 288, MPV 9.5, Immature Gran % (Auto) 0.300, Neut % (Auto) 69.3, Lymph % (Auto) 18.6 L, [place] % (Auto) 8.5, Eos % (Auto) 2.9, Baso % (Auto) 0.4, Absolute Neuts (auto) 8.5 H, Absolute Lymphs (auto) 2.29, Nucleated RBC % 0 08/18/20 08:40: Sodium 137, Potassium 4.0, Chloride 107, Carbon Dioxide 24.0, Anion Gap 6, BUN 7, Creatinine 0.58, Estim Creat Clear Calc 121.59, Est GFR (MDRD) Af Amer 162, Est GFR (MDRD) Non-Af 134, BUN/Creatinine Ratio 12.2, Glucose 107 H, Calcium 9.1 Current Medications Acetaminophen (Acetaminophen 325 Mg Tablet) 650 mg PO Q6H PRN PRN PRN Reason: Pain Score 1-3 Hydrocodone Bitart/Acetaminophen (Hydrocodone Bitartrate/Apap 5/325 Tablet) 1 tablet PO Q4H PRN PRN PRN Reason: Pain Score 1-5 Aripiprazole (Aripiprazole 2 Mg Tablet) 2 mg PO QHS [facility] Last Admin: 08/18/20 23:38 Dose: 2 mg Documented by: Lactated Ringer's () 1,000 mls @ 125 mls/hr IV .Q8H [facility] Last Admin: 08/19/20 02:49 Dose: 125 mls/hr Documented by: Piperacillin Sod/Tazobactam (Sod 3.375 gm/ Sodium Chloride) 50 mls @ 12.5 mls/hr IV Q8 [facility] Last Admin: 08/19/20 05:36 Dose: 12.5 mls/hr Documented by: Sodium Chloride () 250 mls @ 15 mls/hr IV .[id number] PRN PRN Reason: Saline Flush Last Infusion: 08/19/20 05:36 Dose: 0 mls/hr Documented by: Sodium Chloride () 250 mls @ 15 mls/hr IV .[id number] PRN PRN Reason: Additional IVPB Infusion Influenza Virus Vaccine Quadrival (Influenza Vaccine (6mos+)/Pf 0.5 Ml Syringe) 0.5 ml IM .ONCE ONE Stop: 08/19/20 10:01 Morphine Sulfate (Morphine 4 Mg/Ml Syringe) 4 mg IV Q2H PRN PRN PRN Reason: Pain Score 4-10 Last Admin: 08/18/20 17:40 Dose: 4 mg Documented by: Ondansetron HCl (Ondansetron 4 Mg/2 Ml Vial) 4 mg IV Q8H PRN PRN PRN Reason: NAUSEA/VOMITING Pantoprazole Sodium (Pantoprazole Sodium 20 Mg Tablet) 20 mg PO BIDCM [facility] Last Admin: 08/18/20 17:40 Dose: 20 mg Documented by: Sertraline HCl (Sertraline 100 Mg Tablet) 150 mg PO DAILY [facility] Sodium Chloride (0.9% Saline Lock 10 Ml Syringe) 10 - 40 ml IV UD PRN PRN Reason: SALINE FLUSH Last Admin: 08/18/20 17:40 Dose: 10 ml Documented by:
[2020-08-19 09:05] VITALS: BP 110/67; PULSE 93; RESP 18; TEMP 36.5; O2SAT 93
[2020-08-19] MEDS: Pantoprazole Sodium 20 MG Tablet PO (09:06)
[2020-08-19] MEDS: Sertraline 100 MG Tablet 150 MG PO (09:07)
[2020-08-19] MEDS: HYDROcodone Bitartrate/Apap 5/325 Tablet PO (09:22)
--- NOTE | 2020-08-19 10:31 | NURSING ---
CALLED [facility] FOR UPATE FOR PT'S BABY- VERBAL REPORT GIVEN TO PT
[2020-08-19 11:53] VITALS: BP 114/69; PULSE 94; RESP 18; TEMP 36.7; O2SAT 95
== END 2020-08-19 11:45 | disposition home or self-care (01) | DRG 263 ==
LOC: ED 20:25 → MS3 08-20 09:42
PROVIDERS: Anesthesiology; Admitting Provider Surgery; Emergency Provider Emergency Medicine; PCP Family Medicine; Visit Provider Surgery
PROC: 0FT40ZZ Resection of Gallbladder, Open Approach (ICD-10-PCS; CPT 47610; principal; 2020-08-18 12:00)
DX: K80.12 Calculus of gallbladder with acute and chronic cholecystitis without obstruction (principal); K66.0 Peritoneal adhesions (postprocedural) (postinfection); Z53.31 Laparoscopic surgical procedure converted to open procedure; F32.9 Major depressive disorder, single episode, unspecified; G47.33 Obstructive sleep apnea (adult) (pediatric); E66.01 Morbid (severe) obesity due to excess calories; Z68.43 Body mass index [BMI] 50.0-59.9, adult; Z79.899 Other long term (current) drug therapy; Z87.891 Personal history of nicotine dependence; J45.909 Unspecified asthma, uncomplicated
CPT/HCPCS: 36415; 76705; 80048; 80053; 80076; 83690; 84703; 85025; 87426; 88304; 93005; 99251; 99282; 99285; 99406; J7030; J7050; J7120; 90686; A4216; G0463; J2405

== ENCOUNTER 2020-08-25 10:14 | Emergency (ER) | payer MEDICAID, SELFPAY ==
[2020-08-18 11:43] VITALS: BMI 50.3
[2020-08-25 10:15] VITALS: BP 144/79; PULSE 92; RESP 18; TEMP 36.6; O2SAT 98; BMI 51.3
--- NOTE | 2020-08-25 10:50 | ED.VIS.GEN ---
History of Present Illness Informant: Patient Onset: Yesterday Context: Gradual Onset Timing: Continuous Quality: drainage Location: abdomen Current Severity: Mild Maximum Severity: Mild Worsened by: nothing Relieved by: nothing Associated Symptoms: denies Prior similar symptoms: Yes Recent Illness/Hospitalization: Yes <Jude Morris - Last Filed: 08/25/20 10:50> <Emmanuel Marr - Last Filed: 08/25/20 16:29> Chief Complaint: Wound Check Past Medical History Prior records reviewed: Yes Past Medical History: None Surgical History: noncontributory Lives: With Family Smoking Status: Former smoker <Jude Morris - Last Filed: 08/25/20 10:50> <Emmanuel Marr - Last Filed: 08/25/20 16:29> - Allergies and Home Meds Allergies/Adverse Reactions: Allergies No Known Allergies Allergy (Verified 08/25/20 10:17) Primary Care Physician: Stephanie Johnson MD [STAFF PHYSICIAN] - 2 Days for wound check Review of Systems General: Denies: Chills, Fever, Sweats Eyes: Denies: Visual changes - bilaterally, Diplopia ENT: Denies: Rhinorrhea, Sore throat Cardiovascular: Denies: Chest pain, Palpitations Respiratory: Denies: Dyspnea, Cough, Dyspnea on exertion Gastrointestinal: Denies: Abdominal pain, Nausea, Vomiting, Diarrhea, Melena, Hematochezia Genitourinary: Denies: Dysuria, Hematuria, Frequency Musculoskeletal: Denies: Back pain, Extremity Pain Skin: Reports: Wounds. Denies: Rash, Abscess, Abrasions Neurological: Denies: Headache, Weakness, Numbness <Jude Morris - Last Filed: 08/25/20 10:50> Physical Exam Vital Signs/Narrative: Vital Signs Temp Pulse Resp BP Pulse Ox 08/25/20 10:15 97.8 F 92 18 144/79 H 98 Inital Vital Signs reviewed: Yes General: Well nourished, Well developed, No Acute Distress Head: Normocephalic, Atraumatic Eyes: Perrl, EOMI ENT: Moist mucous membranes, No rhinorrhea Neck: Supple, Nontender Cardiovascular: Regular rate, Regular rhythm, No murmurs Respiratory: No distress, CTA bilaterally, Chest nontender Abdomen: Soft, Nontender, Nondistended, Normal bowel sounds, - - drain in place. no active drainage or surrounding signs of infection. Back: Nontender, Normal Inspection Extremities: Nontender, No edema Skin: Normal color, No rash Neurological: Alert, Oriented x3, Cranial nerves II-XII grossly intact, Normal Strength, Normal Sensation Psychological: Normal affect, Normal Mood <Jude Morris - Last Filed: 08/25/20 10:50> Diagnostic/Tx/Re-eval - Medical Decision Making Patient's drain is in place. There is no active drainage noted on exam. She overall is well-appearing with stable vital signs no fevers she has been eating and drinking normally. We spoke with Dr. Johnson her surgeon who recommended that we start the patient on 5 days of Augmentin have the patient avoid bathing and do sponge baths leave the dressing in place and follow-up on Thursday in the office. Patient was agreeable with plan she was given return precautions and was discharged <Jude Morris - Last Filed: 08/25/20 10:50> - Medical Decision Making Seen and evaluated independently and in conjunction with physician facilities assistant. Agree with notes above unless documented otherwise. Patient states she had a dressing change in the office yesterday, before she was unable to see the gauze underneath of the dressing and the drain exiting her abdominal wall, but now she can and has noticed that the gauze underneath of the transparent dressing has yellow serous drainage on it that has not leaked out of the dressing. After emptying her drain this morning, it is feeling back up as usual. She has no pain in her exam shows no tenderness around the area. Reassured, discussed with Dr. Johnson, who is in agreement, and discharged with Augmentin as above. <Emmanuel Marr - Last Filed: 08/25/20 16:29> ED Disposition <Jude Morirs - Last Filed: 08/25/20 10:50> <Emmanuel Marr - Last Filed: 08/25/20 16:29> - Plan for ED Patient: Disposition: Home or Assisted Living Diagnosis: Encounter for post surgical wound check, Anxiety and depression, MANUEL (obstructive sleep apnea) Instructions: ED Wound Infection after surgery Prescriptions: Amox/Clavulanate Tablet [Augmentin Tablet] 875 mg PO Q12H #10 tab Transmission Status: Received by [facility] Referrals: Stephanie Johnson MD [STAFF PHYSICIAN] - 2 Days for wound check
[2020-08-25 11:05] VITALS: BP 124/76; PULSE 71; RESP 15; O2SAT 98
== END 2020-08-25 11:06 | disposition home or self-care (01) ==
PROVIDERS: Emergency Provider Physician Assistant Medical; PCP Family Medicine
DX: Z48.03 Encounter for change or removal of drains (principal); F41.9 Anxiety disorder, unspecified; F32.9 Major depressive disorder, single episode, unspecified; G47.33 Obstructive sleep apnea (adult) (pediatric); Z79.899 Other long term (current) drug therapy; Z87.891 Personal history of nicotine dependence
CPT/HCPCS: 99282

== ENCOUNTER 2020-08-28 13:50 | Day surgery (SDC) | payer MEDICAID, SELFPAY ==
[2020-08-28 14:31] VITALS: BP 119/77; PULSE 87; RESP 18; TEMP 36.9; O2SAT 99; BMI 50.6
[2020-08-28] MEDS: Lactated Ringers 1,000 ML 75 ML IV (14:58)
--- NOTE | 2020-08-28 15:05 | PCM.HP.STD ---
Problem List (1) Bile leak Status: Acute History of Present Illness Date of Admission: 08/28/20 The patient is a 25 year old F here with postoperative bile leak. The patient had an open cholecystectomy for severe cholecystitis a little over a week ago and developed a postoperative bile leak through her LINDSAY drain. The patient is not reporting any right upper quadrant pain at this time. She has no fevers or chills. Past Medical History Past Medical History (Chronic Problems): Chronic Problems (Last Reviewed 01/02/20 @ 14:20 by Mary Abdalla DOMESTIC TRAVEL CONSULTANT, DOMESTIC TRAVEL CONSULTANT-C) Anxiety and depression (Chronic) Abnormal PFT (Chronic) MANUEL (obstructive sleep apnea) (Chronic) BiPAP 10/6 cmH2O Hypersomnia (Chronic) Decreased hearing (Chronic) Morbid obesity (Chronic) Depression with anxiety (Chronic) Asthma (Chronic) Medical History: Medical History (Last Reviewed 01/02/20 @ 14:20 by Mary Abdalla DOMESTIC TRAVEL CONSULTANT, DOMESTIC TRAVEL CONSULTANT-C) Herpes simplex (Acute) B00.9 Abnormal PFT (Chronic) R94.2 MANUEL (obstructive sleep apnea) (Chronic) G47.33 BiPAP 10/6 cmH2O Dyspnea (Acute) R06.00 Hypersomnia (Chronic) G47.10 Decreased hearing (Chronic) H91.90 Morbid obesity (Chronic) E66.01 Depression with anxiety (Chronic) F41.8 Asthma (Chronic) J45.909 Fatigue (Resolved) R53.83 Suspected sleep apnea (Inactive) R29.818 Allergies No Known Allergies Allergy (Verified 08/28/20 14:27) Home Medications: Ambulatory Orders Medication Instructions Recorded sertraline 100 mg tablet 150 mg PO DAILY tab 07/13/19 Aripiprazole 2 mg PO QHS 08/16/20 Amox/Clavulanate Tablet [Augmentin 875 mg PO Q12H #10 tab 08/25/20 Tablet] Acetaminophen [Tylenol Extra 500 - 1,000 mg PO Q6H PRN PRN 08/27/20 Strength] Hydrocodone/Acetaminophen 1 ea PO Q8H PRN PRN 08/27/20 [Hydrocodon-Acetaminophen 5-325] Ibuprofen [Advil] 200 mg PO PRN PRN 08/27/20 Surgical History: Surgical History (Last Reviewed 01/02/20 @ 14:20 by Mary Abdalla DOMESTIC TRAVEL CONSULTANT, DOMESTIC TRAVEL CONSULTANT-C) History of placement of ear tubes (Resolved) Z96.22 History of tonsillectomy (Resolved) Z90.89 Surgical History: noncontributory Smoking Status: Former smoker Review of Systems Constitutional: Denies: Anorexia, Fever HEENT: Denies: Difficulty Swallowing Respiratory: Denies: Cough, Shortness of Breath Gastrointestinal: Denies: Abdominal Pain, Nausea, Vomiting Genitourinary: Denies: Dysuria Musculoskeletal: Denies: Joint Tenderness Psychiatric: Denies: Anxiety Hematologic/ Lymphatic: Denies: Anemia VTE Information - Inpt Only VTE Present on Admission: No VTE Mechan Device Prophylaxis: SCD's - Physical Exam Vitals/I&O's: Vital Signs Temp Pulse Resp BP Pulse Ox 98.5 F 87 18 119/77 99 08/28/20 14:31 08/28/20 14:31 08/28/20 14:31 08/28/20 14:31 08/28/20 14:31 Oxygen Delivery Method Room Air Weight: 285 lb 15.033 oz Body Mass Index (BMI) 50.6 General: Alert, Oriented x3 Neck: No JVD Lungs: Normal air movement Abdomen: Soft, Non-Distended, - - LINDSAY with bilious drainage Extremities: No clubbing Musculoskeletal: No Muscle Wasting Neurological: Cranial nerves II-XII grossly intact Psych/Mental Status: Normal Affect Current Medications Lactated Ringer's () 1,000 mls @ 75 mls/hr IV .[id number] Last Admin: 08/28/20 14:58 Dose: 75 mls/hr Documented by: Assessment/Plan All Active Problems (Last Reviewed 01/02/20 @ 14:20 by Mary Abdalla DOMESTIC TRAVEL CONSULTANT, DOMESTIC TRAVEL CONSULTANT-C) Bile leak (Acute) Herpes simplex (Acute) Dyspnea (Acute) History of placement of ear tubes (Resolved) History of tonsillectomy (Resolved) Fatigue (Resolved) 25-year-old female with postoperative bile leak 1. The patient has a postoperative bile leak. I discussed ERCP with stent placement with her in detail. I discussed the risks including but not limited to bleeding, infection, perforation of the bile duct or bowel, pancreatitis. The patient understands the risks and is when to proceed with ERCP with stent placement. Jude Gray MD Pager: [facility] [address] [place] [address], [address] [place] [phone] Office:
--- NOTE | 2020-08-28 15:34 | RAD_ITS ---
Fluoroscopic guided ERCP INDICATION: Pain TECHNIQUE: Fluoroscopic-guided ERCP was performed in the anterior projection utilizing 50.2 seconds of fluoroscopic time. DLP was 18.84 Findings: 5 fluoroscopic guided images were obtained during the study. For more complete information recommend correlation with store team leader notes. RAD/ERCP Biliary Only IMPRESSION: Fluoroscopic guided ERCP Electronically Signed: Kemal Weston MD at 17:37 EST , Service support ,
--- NOTE | 2020-08-28 16:02 | OP.ERCP_ITS ---
Patient Name: Sherry Patrick Procedure Date: 08/28/2020 3:59 PM Date of : 1995 Age: 25 Procedure: ERCP Indications: Bile leak Providers: Jude Gray MD Referring MD: Dalton Chanel Medicines: General Anesthesia Patient Profile: This is a 25 year old female. Refer to note in patient chart for documentation of history and physical. Complications: No immediate complications. Estimated blood loss: Minimal. Procedure: Pre-Anesthesia Assessment: - Prior to the procedure, a History and Physical was performed, and patient medications and allergies were reviewed. The patient's tolerance of previous anesthesia was also reviewed. The risks and benefits of the procedure and the sedation options and risks were discussed with the patient. All questions were answered, and informed consent was obtained. Prior Anticoagulants: The patient has taken no previous anticoagulant or antiplatelet agents. After reviewing the risks and benefits, the patient was deemed in satisfactory condition to undergo the procedure. After obtaining informed consent, the scope was passed under direct vision. Throughout the procedure, the patient's blood pressure, pulse, and oxygen saturations were monitored continuously. The duodenoscope was introduced through the mouth, and advanced to the duodenum and used to inject contrast into the bile duct. The ERCP was accomplished without difficulty. The patient tolerated the procedure well. Findings: A 0.035 inch x 260 cm straight Dreamwire was passed into the biliary tree. The sphincterotome was passed over the guidewire and the bile duct was then deeply cannulated. Contrast was injected. I personally interpreted the bile duct images. There was brisk flow of contrast through the ducts. Extravasation of contrast originating from the gallbladder was observed. Biliary sphincterotomy was made with a monofilament sphincterotome using ERBE electrocautery. There was no post-sphincterotomy bleeding. One 10 Fr by 5 cm plastic stent with a single external flap and a single internal flap was placed into the common bile duct. Bile flowed through the stent. The stent was in good position. Impression: - A bile leak was found. - A biliary sphincterotomy was performed. - One plastic stent was placed into the common bile duct. Recommendation: - Discharge patient to home. - Advance diet as tolerated. - Continue present medications. - Return to my office in 4 weeks. Procedure Code(s): --- Professional --- 48830, Endoscopic retrograde cholangiopancreatography (ERCP); with placement of endoscopic stent into biliary or pancreatic duct, including pre- and post-dilation and guide wire passage, when performed, including sphincterotomy, when performed, each stent Diagnosis Code(s): --- Professional --- K83.9, Disease of biliary tract, unspecified K83.8, Other specified diseases of biliary tract CPT copyright 2017 [employer]. All rights reserved. The codes documented in this report are preliminary and upon crown and bridge technician review may be revised to meet current compliance requirements. Jude Gray MD 08/28/2020 4:02:23 PM This report has been signed electronically. Number of Addenda: 0 Note Initiated On: 08/28/2020 3:59 PM
--- NOTE | 2020-08-28 16:02 | OP.CCLET_ITS ---
08/28/2020 Dalton Chanel [address] [place] [address] Re : ERCP procedure for Sherry Darnell Dear Dr. Chanel This procedure was performed on Friday, August 28, 2020. My impressions and recommendations are as follows: Impressions : - A bile leak was found. - A biliary sphincterotomy was performed. - One plastic stent was placed into the common bile duct. Recommendations : - Discharge patient to home. - Advance diet as tolerated. - Continue present medications. - Return to my office in 4 weeks. My findings are described in the full procedure note, which is enclosed. If I can be of further assistance, please feel free to contact me at Doctor phone number(s): , Work: . Sincerely, Jude Gray MD 08/28/2020 4:02:23 PM This report has been signed electronically.
[2020-08-28 16:03] VITALS: BP 119/77; BP 138/82; PULSE 98; RESP 16; TEMP 36.5; O2SAT 95
[2020-08-28 16:15] VITALS: BP 119/77; BP 143/82; PULSE 91; RESP 16; O2SAT 98
[2020-08-28 16:30] VITALS: BP 119/77; BP 123/77; PULSE 92; RESP 16; TEMP 36.3; O2SAT 98
[2020-08-28 16:50] VITALS: BP 119/77
== END 2020-08-28 17:06 | disposition home or self-care (01) ==
LOC: EN 13:52 → AC 13:52
PROVIDERS: PCP Family Medicine; Referring Provider Family Medicine; Visit Provider Surgery
PROC: (CPT 43260; principal; 2020-08-28 15:30)
DX: K83.8 Other specified diseases of biliary tract (principal); G47.33 Obstructive sleep apnea (adult) (pediatric); F41.8 Other specified anxiety disorders; E66.01 Morbid (severe) obesity due to excess calories; Z68.43 Body mass index [BMI] 50.0-59.9, adult; J45.909 Unspecified asthma, uncomplicated; H91.90 Unspecified hearing loss, unspecified ear; Z79.899 Other long term (current) drug therapy; Z87.891 Personal history of nicotine dependence
CPT/HCPCS: 43274; 74328; 76000; 87426; J7120; J2405

== ENCOUNTER → 2020-09-04 10:03 | Outpatient (CLI) | payer MEDICAID, SELFPAY ==
[2020-08-28 14:31] VITALS: BMI 50.6
[2020-09-04 12:55] LABS: Vitamin D,25 Hydroxy 39.3 ng/mL
[2020-09-04 13:18] LABS: ALB/GLOB Ratio 0.8 RATIO (0.9-2.4); AST(SGOT) 15 U/L (15-37); Alanine Aminotransfer ALT/SGPT 40 U/L (13-56); Albumin, Serum 3.4 g/dL (3.2-5.0); Alkaline Phosphatase 90 U/L (45-117); Anion Gap 7 (5-15); BUN 10 mg/dL (7-18); BUN/Creat Ratio 16.8 RATIO (10-20); Calcium,Total 9.2 mg/dL (8.5-10.1); Chloride 108 mmol/L (98-107); Creatinine, Serum 0.59 mg/dL (0.55-1.02); EST Glomerular Filtration Rate 129 mL/min (>60); Est Glom Filt Rate - Afr Amer 157 mL/min (>60); Glucose 87 mg/dL (74-106); Potassium 4.1 mmol/L (3.5-5.1); Protein, Total 7.4 g/dL (6.4-8.2); Sodium Level 139 mmol/L (136-145); T4 Free Direct 1.07 ng/dL (0.76-1.46); Thyroid Stim Hormone (TSH) 3.82 uIU/mL (0.358-3.74)
== END ==
PROVIDERS: PCP Family Medicine; Referring Provider Family Medicine; Visit Provider Family Medicine
DX: E03.9 Hypothyroidism, unspecified (principal); E66.01 Morbid (severe) obesity due to excess calories; E55.9 Vitamin D deficiency, unspecified
CPT/HCPCS: 36415; 80053; 82306; 84439; 84443

== ENCOUNTER 2020-09-16 15:26 | Observation (INO) | payer MEDICAID, SELFPAY ==
[2020-09-16 15:27] VITALS: BP 122/79; PULSE 87; RESP 16; TEMP 36.5; O2SAT 97; BMI 51.3
--- NOTE | 2020-09-16 15:30 | CT_ITS ---
STUDY: CT ABDOMEN AND PELVIS WITH CONTRAST REASON FOR EXAM: Female, 25 years old. LOW BACK PAIN SINCE LAST NIGHT. Recent cholecystectomy 08/18/20-drain removed 09/12/20. RADIATION DOSAGE (If Supplied By Facility): CTDIvol = ( 18.74 ) mGy, DLP = ( 1335.39 ) mGycm TECHNIQUE: Transaxial images were obtained from the dome of the diaphragm to the symphysis pubis without oral contrast. IV 100mL Isovue-370 was administered. Sagittal and coronal images were reconstructed. Individualized dose optimization techniques were used for this CT. COMPARISON: None. FINDINGS: Streaky nonsegmental atelectasis suggested in the right lung base. Fatty liver with hepatomegaly. Surgical clips seen in the jenna hepatis consistent with the history of recent cholecystectomy. Also in the gallbladder fossa there is a fluid density structure approximately 4.6 cm greatest dimension that has an appearance consistent with gallbladder so correlate closely with the surgical history. It could also represent a localized fluid collection such as seroma or biloma. Abscess is not excluded but less likely. A common bile duct stent runs through the course of the common bile duct and into the proximal duodenum. No biliary distention seen. Normal pancreas and spleen. Normal bilateral adrenal glands. Normal right kidney. Normal left kidney. Evaluation of the GI tract is limited by absence of oral contrast. Cannot exclude stomach wall thickening. No dilated loops of bowel or evidence for obstruction. Cannot exclude segmental thickening of the casey of the small or large bowel. Cannot exclude enteritis or colitis. Moderate diffuse fecal retention. Appendix within normal limits. Normal abdominal aorta. Normal inferior vena cava. Normal retroperitoneum. Normal urinary bladder. Normal visualized uterus. Normal abdominal wall. Normal osseous structures. CT/Abdomen/Pelvis WITH Contrast IMPRESSION: Although there is a history of cholecystectomy, a fluid density structure in the jenna hepatis/gallbladder fossa certainly looks like a nondistended gallbladder. Other postoperative fluid collections are possible as above. Common bile duct stent in satisfactory position and no bile duct distention. Electronically Signed: Butch Orozco MD at 16:51 EST , Service support ,
--- NOTE | 2020-09-16 15:45 | ED.VIS.GEN ---
History of Present Illness Chief Complaint: Back Informant: Patient Onset: Yesterday Context: Gradual Onset Timing: Continuous Current Severity: Moderate Maximum Severity: Severe Narrative: The patient is a 25-year-old female with history of prior low back pain, recent cholecystectomy, who presents to the emergency department with low back pain. The patient states she went to work. She states she think she aggravated her low back towards the end of the day. When she got up this morning, she was having increasing pain. She states that she was trying to lay on the floor to stretch her back. She states her pain worsened. Because of her pain, she was unable to get up. She was able to get her phone and call EMS. On EMS arrival, the patient was placed on a backboard which she states helped her comfort. The patient denies any numbness in her groin. She denies any weakness of her legs. She states because she cannot get up, she did defecate. She states it was not because she was incontinent, but just cannot get up to get to the bathroom. Prior similar symptoms: Yes Recent Illness/Hospitalization: No Past Medical History - Allergies and Home Meds Allergies/Adverse Reactions: Allergies No Known Allergies Allergy (Verified 08/28/20 14:27) Primary Care Physician: Dalton Chanel MD [Primary Care Provider] - Prior records reviewed: Yes Past Medical History: None Surgical History: cholecystectomy Smoking Status: Former smoker Review of Systems General: Denies: Chills, Fever, Sweats Eyes: Denies: Visual changes - bilaterally, Diplopia ENT: Denies: Rhinorrhea, Sore throat Cardiovascular: Denies: Chest pain, Palpitations Respiratory: Denies: Dyspnea, Cough, Dyspnea on exertion Gastrointestinal: Denies: Abdominal pain, Nausea, Vomiting, Diarrhea, Melena, Hematochezia Genitourinary: Denies: Dysuria, Hematuria, Frequency Musculoskeletal: Reports: Back pain. Denies: Extremity Pain Skin: Denies: Rash, Wounds Neurological: Denies: Headache, Weakness, Numbness Physical Exam Vital Signs/Narrative: Vital Signs Temp Pulse Resp BP Pulse Ox 09/16/20 15:27 97.7 F L 87 16 122/79 H 97 Inital Vital Signs reviewed: Yes General: Well nourished, Well developed, No Acute Distress Head: Normocephalic, Atraumatic Eyes: Perrl, EOMI ENT: Moist mucous membranes, No rhinorrhea Neck: Supple, Nontender Cardiovascular: Regular rate, Regular rhythm, No murmurs Respiratory: No distress, CTA bilaterally, Chest nontender Abdomen: Soft, Nontender, Nondistended, Normal bowel sounds Back: Normal Inspection, - - Paraspinal tenderness in the lumbar area. Straight leg raise negative. Normal dorsiflexion, plantar flexion, extensor hallucis longus. Normal reflexes and pulses.. Negative for: Spinal tenderness Extremities: Nontender, No edema Skin: Normal color, No rash Neurological: Alert, Oriented x3, Cranial nerves II-XII grossly intact, Normal Strength, Normal Sensation Psychological: Normal affect, Normal Mood Diagnostic/Tx/Re-eval Clinical Impression(s) from Imaging Studies Abdomen/Pelvis CT 09/16/20 15:30 IMPRESSION: Although there is a history of cholecystectomy, a fluid density structure in the jenna hepatis/gallbladder fossa certainly looks like a nondistended gallbladder. Other postoperative fluid collections are possible as above. Common bile duct stent in satisfactory position and no bile duct distention. Electronically Signed: Butch Orozco MD at 16:51 EST , Service support , Abnormal Lab Results 09/16/20 09/16/20 15:50 15:50 WBC 7.2 RBC 4.48 Hgb 12.5 Hct 39.4 MCV 87.9 MCH 27.9 MCHC 31.7 L RDW Std Deviation 37.4 RDW Coeff of [place] 11.7 Plt Count 358 MPV 9.2 Immature Gran % (Auto) 0.400 Neut % (Auto) 58.4 Lymph % (Auto) 27.9 [place] % (Auto) 8.6 Eos % (Auto) 4.3 Baso % (Auto) 0.4 Absolute Neuts (auto) 4.2 Absolute Lymphs (auto) 2.02 Nucleated RBC % 0 Sodium 142 Potassium 4.0 Chloride 108 H Carbon Dioxide 28.0 Anion Gap 6 BUN 14 Creatinine 0.63 Estim Creat Clear Calc 111.94 Est GFR (MDRD) Af Amer 146 Est GFR (MDRD) Non-Af 121 BUN/Creatinine Ratio 22.2 H Glucose 97 Calcium 9.3 Total Bilirubin 0.30 AST 15 ALT 40 Alkaline Phosphatase 90 Total Protein 7.7 Albumin 3.6 Globulin 4.1 Albumin/Globulin Ratio 0.9 - Medical Decision Making Patient presents with atraumatic low back pain and spasm. She has normal strength of her lower extremities. She has normal reflexes. She is complaining of significant pain, but is able to roll side to side in the bed. She she was also able to turn all the way onto her stomach. She was given analgesics with some improvement. Metabolic work-up was pursued and was unremarkable. With her recent cholecystectomy, I did obtain CT of abdomen pelvis to look for any deep space problem. There is a questionable seroma around her gallbladder. She is not had fever or chills. She has a normal white count. I do not feel that this is an abscess. Her other pelvic and lumbar area are unremarkable. Prior to discharge, the patient was still having significant pain. She could not get comfortable in the bed. She states any when she moves, she has pain. We try to stand ambulate the patient, but she cannot secondary to her pain. I tried to discuss options with the patient. She does not feel like she can take care of herself at home. I do not feel that she needs an emergent MRI. Impression 1. Exacerbation of low back pain with spasm ED Disposition - Plan for ED Patient: Instructions: ED Spasm Back No Trauma Prescriptions: cycloBENZAPRine HCl [Flexeril] 10 mg PO TID PRN #20 tab PRN Reason: Muscle Spasm Prescription Printed Lidocaine [Lidoderm Patch] 1 patch TOPICAL DAILY #7 patch Prescription Printed Hydrocodone Bitart/Apap 5-325 [[place] 5MG-325MG] 1 tab PO Q6H PRN PRN 3 Days #10 tab PRN Reason: Pain Prescription Printed Referrals: Dalton Chanel MD [Primary Care Provider] -
[2020-09-16 15:47] VITALS: BP 122/72; PULSE 83; RESP 16; O2SAT 97
[2020-09-16 15:57] LABS: Absolute Lymphocyte Count 2.02 X10^3/uL (0.83-4.51); Absolute Neutrophil Count 4.2 X10^3/uL (2.0-7.7); Basophil# 0.03 X10^3/uL; Basophil% 0.4 % (0-1); Eosinophil# 0.31 X10^3/uL; Eosinophils% 4.3 % (0-5); Hematocrit 39.4 % (37-47); Hemoglobin 12.5 g/dL (12.0-15.0); Lymphocyte # 2.02 X10^3/ul (4.0); Lymphocyte % 27.9 % (19-41); Mean Corp Hgb Conc 31.7 g/dL (32-36); Mean Corpuscular Hgb 27.9 pg (27.0-32.0); Mean Corpuscular Volume 87.9 fL (81-99); Mean Platelet Vol. 9.2 fl (6.2-12.0); Monocyte# 0.62 X10^3/uL; Monocyte% 8.6 % (0-10); NRBC Flagged by Analyzer 0 % (0-5); Neutrophil # 4.22 X10^3/uL (2.7-7.7); Neutrophil % 58.4 % (47-70); Platelet Count 358 K/mm3 (150-450); RBC Distribution Width CV 11.7 % (11.6-14.6); RBC Distribution Width SD 37.4 fl (35.1-43.9); Red Blood Count 4.48 M/mm3 (4.2-5.4); White Blood Count 7.2 K/mm3 (4.4-11.0)
[2020-09-16] MEDS: Morphine 4 MG/ML Syringe IV (15:58)
[2020-09-16] MEDS: 0.9% Normal Saline 1,000 ML 1000 ML IV (15:58)
[2020-09-16] MEDS: Ondansetron 4 MG/2 ML Vial IV (15:58)
[2020-09-16 16:20] LABS: ALB/GLOB Ratio 0.9 RATIO (0.9-2.4); AST(SGOT) 15 U/L (15-37); Alanine Aminotransfer ALT/SGPT 40 U/L (13-56); Albumin, Serum 3.6 g/dL (3.2-5.0); Alkaline Phosphatase 90 U/L (45-117); Anion Gap 6 (5-15); BUN 14 mg/dL (7-18); BUN/Creat Ratio 22.2 RATIO (10-20); Calcium,Total 9.3 mg/dL (8.5-10.1); Chloride 108 mmol/L (98-107); Creatinine, Serum 0.63 mg/dL (0.55-1.02); EST Glomerular Filtration Rate 121 mL/min (>60); Est Glom Filt Rate - Afr Amer 146 mL/min (>60); Estimated Creatinine Clearance 111.94 ml/min; Globulin 4.1 g/dL (2.2-4.2); Glucose 97 mg/dL (74-106); Protein, Total 7.7 g/dL (6.4-8.2); Sodium Level 142 mmol/L (136-145)
[2020-09-16] MEDS: HYDROmorphone 1 MG/ML Syringe IV (16:54)
[2020-09-16 17:37] VITALS: BP 135/68; PULSE 17; RESP 88; O2SAT 96
[2020-09-16] MEDS: Ketorolac 30 MG/ML Syringe IV (17:47)
[2020-09-16] MEDS: LORazepam 2 MG/ML Syringe 1 MG IV (17:47)
[2020-09-16 18:36] VITALS: BP 135/68; PULSE 88; RESP 17; TEMP 36.5; O2SAT 96
--- NOTE | 2020-09-16 18:56 | HP.PCM_ITS ---
History of Present Illness Date of Admission: 09/16/20 Chief Complaint: Back pain The patient is a 25 year old F with PMH as below, presents with back pain. She works at [employer] in [place] and had just returned back to work after having a cholecystectomy. She does not remember any inciting event, she thinks that she just aggravated her low back towards the end of the day of work yesterday. She got up today and stated that she was having increased pain. The pain is in her right paraspinal muscle in her low back. She said that she tried to stretch it and laid down on the hardwood floor which helped a little bit. She states that she was unable to walk because of how bad the pain was and did defecate on herself because she could not get up to go to the bathroom. She denies any numbness or tingling in her feet. No weakness. She denies any incontinence of urine or stool. Past Medical History Past Medical History (Chronic Problems): Chronic Problems (Last Reviewed 01/02/20 @ 14:20 by Mary Abdalla AUCTIONEER TOBACCO, AUCTIONEER TOBACCO-C) Anxiety and depression (Chronic) Abnormal PFT (Chronic) MANUEL (obstructive sleep apnea) (Chronic) BiPAP 10/6 cmH2O Hypersomnia (Chronic) Decreased hearing (Chronic) Morbid obesity (Chronic) Depression with anxiety (Chronic) Asthma (Chronic) Medical History: Medical History (Last Reviewed 01/02/20 @ 14:20 by Mary Abdalla AUCTIONEER TOBACCO, AUCTIONEER TOBACCO-C) Herpes simplex (Acute) B00.9 Abnormal PFT (Chronic) R94.2 MANUEL (obstructive sleep apnea) (Chronic) G47.33 BiPAP 10/6 cmH2O Dyspnea (Acute) R06.00 Hypersomnia (Chronic) G47.10 Decreased hearing (Chronic) H91.90 Morbid obesity (Chronic) E66.01 Depression with anxiety (Chronic) F41.8 Asthma (Chronic) J45.909 Fatigue (Resolved) R53.83 Suspected sleep apnea (Inactive) R29.818 Allergies No Known Allergies Allergy (Verified 08/28/20 14:27) Home Medications: Ambulatory Orders Medication Instructions Recorded sertraline 100 mg tablet 150 mg PO DAILY tab 07/13/19 Aripiprazole 2 mg PO QHS 08/16/20 Hydrocodone Bitart/Apap 5-325 1 tab PO Q6H PRN PRN 3 Days #10 tab 09/16/20 [[place] 5MG-325MG] Lidocaine [Lidoderm Patch] 1 patch TOPICAL DAILY #7 patch 09/16/20 cycloBENZAPRine HCl [Flexeril] 10 mg PO TID PRN #20 tab 09/16/20 Surgical History: Surgical History (Last Reviewed 01/02/20 @ 14:20 by Mary Abdalla AUCTIONEER TOBACCO, AUCTIONEER TOBACCO-C) History of placement of ear tubes (Resolved) Z96.22 History of tonsillectomy (Resolved) Z90.89 Surgical History: cholecystectomy Smoking Status: Former smoker Alcohol: None Drugs: None - *Family History Maternal Family History: Family History (Last Reviewed 01/02/20 @ 14:20 by Mary Abdalla AUCTIONEER TOBACCO, AUCTIONEER TOBACCO-C) Mother Asthma Diabetes Hypertension Review of Systems Constitutional: Denies: Chills, Fever, Weight Change HEENT: Denies: Head Aches, Sinus Congestion, Sinus Drainage Cardiovascular: Denies: Chest Pain, Palpitations Respiratory: Denies: Cough, Shortness of breath at rest, Sputum production Gastrointestinal: Denies: Abdominal Pain, Nausea, Vomiting Genitourinary: Denies: Dysuria Musculoskeletal: Reports: Back Pain. Denies: Joint Pain, Joint Tenderness Skin: Denies: Rash, Wounds Neurological: Denies: Numbness, Tingling, Focal weakness Psychiatric: Denies: Anxiety, Depression, Homicidal Ideations, Suicidal Ideations Hematologic/ Lymphatic: Denies: Easy Bruising, Easy Bleeding VTE Information - Inpt Only VTE Present on Admission: No - Physical Exam Vitals/I&O's: Vital Signs Temp Pulse Resp BP Pulse Ox 97.7 F L 88 17 135/68 H 96 09/16/20 18:36 09/16/20 18:36 09/16/20 18:36 09/16/20 18:36 09/16/20 18:36 Oxygen Delivery Method Room Air Weight: 290 lb Body Mass Index (BMI) 51.3 Intake and Output for Last 24 Hours 09/14/20 09/15/20 09/16/20 23:59 23:59 23:59 Intake Total 1000 / 1000 Balance 1000 / 1000 General: Alert, Oriented x3, Cooperative, No apparent distress HEENT: Atraumatic, PERRLA, EOMI, Normocephalic Oral: Moist Mucosa Neck: Supple, No JVD Lungs: Clear to auscultation, Normal air movement, No rhonchi, No wheeze, No rales Cardiovascular: Regular rate, Regular Rhythm, Normal S1, Normal S2, No murmurs Abdomen: Soft, Non Tender, Non-Distended, No Hepato-splenomegaly, Obese Extremities: No edema, Capillary Refill Less than 3 Seconds Skin: No rashes, No breakdown Musculoskeletal: - - Right paraspinal muscle tenderness in her right low back Neurological: Neuro grossly intact, Sensory exam intact to light touch and pain Psych/Mental Status: Normal Affect, Appropriate Laboratory Results 09/16/20 15:50: WBC 7.2, RBC 4.48, Hgb 12.5, Hct 39.4, MCV 87.9, MCH 27.9, MCHC 31.7 L, RDW Std Deviation 37.4, RDW Coeff of [place] 11.7, Plt Count 358, MPV 9.2, Immature Gran % (Auto) 0.400, Neut % (Auto) 58.4, Lymph % (Auto) 27.9, [place] % (Auto) 8.6, Eos % (Auto) 4.3, Baso % (Auto) 0.4, Absolute Neuts (auto) 4.2, Absolute Lymphs (auto) 2.02, Nucleated RBC % 0 09/16/20 15:50: Sodium 142, Potassium 4.0, Chloride 108 H, Carbon Dioxide 28.0, Anion Gap 6, BUN 14, Creatinine 0.63, Estim Creat Clear Calc 111.94, Est GFR (MDRD) Af Amer 146, Est GFR (MDRD) Non-Af 121, BUN/Creatinine Ratio 22.2 H, Glucose 97, Calcium 9.3, Total Bilirubin 0.30, AST 15, ALT 40, Alkaline Phosphatase 90, Total Protein 7.7, Albumin 3.6, Globulin 4.1, Albumin/Globulin Ratio 0.9 Assessment/Plan All Active Problems (Last Reviewed 01/02/20 @ 14:20 by Mary Abdalla AUCTIONEER TOBACCO, AUCTIONEER TOBACCO- C) Bile leak (Acute) Herpes simplex (Acute) Dyspnea (Acute) History of placement of ear tubes (Resolved) History of tonsillectomy (Resolved) Fatigue (Resolved) 1. Right low back pain/morbid obesity -Paraspinal muscle tenderness -PT/OT -Discussed with her that she will not receive narcotics -Valium, ibuprofen, lidocaine patch -Discussed lifestyle modifications to lose weight 2. Anxiety/depression -Stable -Continue with her home medications DVT: Ambulation OBSV E&M: [id number] Initial observation care L2
[2020-09-16 19:09] VITALS: BMI 51.7
[2020-09-16 19:14] VITALS: BP 131/73; PULSE 88; RESP 16; TEMP 36.5; O2SAT 97
[2020-09-16 19:52] VITALS: BMI 51.7
[2020-09-16] MEDS: Ibuprofen 400 MG Tablet PO (21:32)
[2020-09-16] MEDS: ARIPiprazole 2 MG Tablet PO (21:33)
[2020-09-16 21:42] LABS: Mucous, Urine 0 SEEN /hpf (<or=2+); Red Blood Cells-Urine 0 SEEN /hpf (0-5)
[2020-09-16 21:43] LABS: Color, Urine Yellow (Yellow); Glucose, Dipstick Normal (Normal); Ketone-Dipstick Negative (Negative); Leukocyte Esterase-Dipstick Negative /ul (Negative); Nitrite-Dipstick Negative (Negative); Occult Blood-Urine Negative /ul (Negative); Protein-Dipstick 15 mg/dl (Negative); Specific Gravity, Urine 1.015 (1.002-1.030); Urine Bilirubin Dipstick Negative (Negative); Urine Clarity Sl. Cloudy (Clear); Urine Urobilinogen Normal (Normal)
[2020-09-16 21:55] LABS: Bacteria 1+ /hpf (None Seen); White Blood Cells 0-5 SEEN /hpf (0-5)
[2020-09-16 21:58] LABS: Squamous Epithelial Cells - UA 5-10 SEEN /hpf (5-10)
[2020-09-17 01:03] VITALS: BP 116/65; PULSE 74; RESP 16; TEMP 36.8; O2SAT 98
[2020-09-17 06:27] VITALS: BP 140/77; PULSE 77; RESP 16; TEMP 36.8; O2SAT 96
[2020-09-17] MEDS: Ibuprofen 400 MG Tablet PO ×3 (06:30→21:19)
[2020-09-17] MEDS: Lidocaine 5% Patch 1 PATCH TOPICAL (08:57)
[2020-09-17] MEDS: Sertraline 50 MG Tablet 150 MG PO (08:58)
[2020-09-17 09:00] VITALS: PULSE 88
[2020-09-17 11:14] VITALS: BP 119/75; PULSE 90; RESP 16; TEMP 36.6; O2SAT 95
--- NOTE | 2020-09-17 13:57 | PN_ITS ---
Subjective: Patient seen and examined. She was admitted with a complaint of back pain. Patient has no complaints this morning. Back pain is now rated at 6/10. She says she has been able to get up and go to the bathroom on her own. Review of systems is otherwise negative. Vitals/I&O's: Vital Signs Temp Pulse Resp BP Pulse Ox 97.8 F 90 16 119/75 95 09/17/20 11:14 09/17/20 11:14 09/17/20 11:14 09/17/20 11:14 09/17/20 11:14 Oxygen Delivery Method Room Air Weight: 292 lb 0.007 oz Body Mass Index (BMI) 51.7 Intake and Output for Last 24 Hours 09/15/20 09/16/20 09/17/20 23:59 23:59 23:59 Intake Total 1000 / 1220 220 / 220 Balance 1000 / 1220 220 / 220 General: Alert, Oriented x3, Cooperative, - - super morbid obesity HEENT: Atraumatic, PERRLA, EOMI, Normocephalic Oral: Dry Mucosa Neck: Supple, No JVD, Negative Carotid Bruits Lungs: Clear to auscultation, Normal air movement, No rhonchi, No wheeze Cardiovascular: Regular rate, Regular Rhythm, Normal S1, Normal S2, No murmurs Abdomen: Bowel Sounds Present, Soft, Non Tender, Non-Distended, No Hepato- splenomegaly Extremities: No clubbing, No cyanosis, No edema, Capillary Refill Less than 3 Seconds Skin: No rashes, No breakdown Musculoskeletal: No Tenderness to Palpation of Joints or Extremities Lymphatic: No Cervical, Supraclavicular, or Inguinal Adenopathy Neurological: Cranial nerves II-XII grossly intact, Neuro grossly intact, Motor Exam 5/5 strength throughout Psych/Mental Status: Normal Affect, Appropriate, Alert and oriented to time, place, person, mood and affect Laboratory Results 09/16/20 15:50: WBC 7.2, RBC 4.48, Hgb 12.5, Hct 39.4, MCV 87.9, MCH 27.9, MCHC 31.7 L, RDW Std Deviation 37.4, RDW Coeff of [place] 11.7, Plt Count 358, MPV 9.2, Immature Gran % (Auto) 0.400, Neut % (Auto) 58.4, Lymph % (Auto) 27.9, Nolan % (Auto) 8.6, Eos % (Auto) 4.3, Baso % (Auto) 0.4, Absolute Neuts (auto) 4.2, Absolute Lymphs (auto) 2.02, Nucleated RBC % 0 09/16/20 15:50: Sodium 142, Potassium 4.0, Chloride 108 H, Carbon Dioxide 28.0, Anion Gap 6, BUN 14, Creatinine 0.63, Estim Creat Clear Calc 111.94, Est GFR (MDRD) Af Amer 146, Est GFR (MDRD) Non-Af 121, BUN/Creatinine Ratio 22.2 H, Glucose 97, Calcium 9.3, Total Bilirubin 0.30, AST 15, ALT 40, Alkaline Phosphatase 90, Total Protein 7.7, Albumin 3.6, Globulin 4.1, Albumin/Globulin Ratio 0.9 09/16/20 21:30: Urine Color Yellow, Urine Clarity Sl. Cloudy, Urine pH 5.0, Ur Specific Randolph 1.015, Urine Protein 15 H, Urine Glucose (UA) Normal, Urine Ketones Negative, Urine Occult Blood Negative, Urine Nitrite Negative, Urine Bilirubin Negative, Urine Urobilinogen Normal, Ur Leukocyte Esterase Negative, Urine RBC 0 SEEN, Urine WBC 0-5 SEEN, Ur Squamous Epith Cells 5-10 SEEN, Urine Bacteria 1+, Urine Mucus 0 SEEN Diagnostic Data Abdomen/Pelvis CT 09/16/20 15:30 IMPRESSION: Although there is a history of cholecystectomy, a fluid density structure in the jenna hepatis/gallbladder fossa certainly looks like a nondistended gallbladder. Other postoperative fluid collections are possible as above. Common bile duct stent in satisfactory position and no bile duct distention. Electronically Signed: Butch Orozco MD at 16:51 EST , Service support , Current Medications Aripiprazole (Aripiprazole 2 Mg Tablet) 2 mg PO QHS [facility] Last Admin: 09/16/20 21:33 Dose: 2 mg Documented by: Diazepam (Diazepam 5 Mg Tablet) 5 mg PO BID PRN PRN PRN Reason: SPASMS Ibuprofen (Ibuprofen 400 Mg Tablet) 400 mg PO Q4H PRN PRN PRN Reason: Pain Score 1-10/Temp > 100.7 F Last Admin: 09/17/20 11:18 Dose: 400 mg Documented by: Lidocaine (Lidocaine 5% Patch) 1 patch TOPICAL DAILY [facility]; Protocol Last Admin: 09/17/20 08:57 Dose: 1 patch Documented by: Melatonin (Melatonin 3 Mg Tablet) 3 mg PO QHS PRN PRN PRN Reason: INSOMNIA Ondansetron HCl (Ondansetron 4 Mg/2 Ml Vial) 4 mg IV Q8H PRN PRN PRN Reason: NAUSEA/VOMITING Sertraline HCl (Sertraline 50 Mg Tablet) 150 mg PO DAILY [facility] Last Admin: 09/17/20 08:58 Dose: 150 mg Documented by: Sodium Chloride (0.9% Saline Lock 10 Ml Syringe) 10 - 40 ml IV UD PRN PRN Reason: SALINE FLUSH STROKE Vital Signs/Narrative: Vital Signs Temp Pulse Resp BP Pulse Ox 09/17/20 11:14 97.8 F 90 16 119/75 95 Medical Necessity - Tobacco Use Smoking Status: Former smoker Assessment/Plan All Active Problems (Last Reviewed 01/02/20 @ 14:20 by Mary Abdalla WAITER/WAITRESS ROOM SERVICE, WAITER/WAITRESS ROOM SERVICE- C) Bile leak (Acute) Herpes simplex (Acute) Dyspnea (Acute) History of placement of ear tubes (Resolved) History of tonsillectomy (Resolved) Fatigue (Resolved) #Intractable back pain * likely due to muscle spasms * imaging done was negative * on ibuprofen, lidocaine patch and valium * PT/OT on board * #Anxiety and depression: On Abilify and Zoloft DVT prophylaxis; low risk, encourage to ambulate. OBSV E&M: 50997 Subsequent observation care L2
[2020-09-17 14:43] VITALS: BP 113/69; PULSE 93; RESP 18; TEMP 36.9; O2SAT 95
[2020-09-17 20:45] VITALS: BP 131/84; PULSE 85; RESP 16; TEMP 36.9; O2SAT 98
[2020-09-17] MEDS: ARIPiprazole 2 MG Tablet PO (21:32)
[2020-09-18] MEDS: diazePAM 5 MG Tablet PO (00:07)
[2020-09-18 02:45] VITALS: BP 123/81; PULSE 78; RESP 16; TEMP 36.8; O2SAT 95
[2020-09-18 09:00] VITALS: BP 150/97; PULSE 90; RESP 18; TEMP 36.7; O2SAT 97
[2020-09-18] MEDS: Lidocaine 5% Patch 1 PATCH TOPICAL (09:14)
[2020-09-18] MEDS: Sertraline 50 MG Tablet 150 MG PO (09:15)
--- NOTE | 2020-09-18 10:48 | PCM.DC ---
You will use the following diet at home:: No restrictions Your food should be the consistency of: Regular Your liquids should be the consistency of: Regular/Thin Discharge Activity: Return to Normal Activity Weight Bearing Status: Weight bearing as tolerated Instructions: ED Back Spasm, No Trauma Allergies/Adverse Reactions: Allergies No Known Allergies Allergy (Verified 09/16/20 19:52) Medications to take at Discharge sertraline 100 mg tablet 150 mg PO DAILY tab 07/13/19 Aripiprazole 2 mg PO QHS 08/16/20 Hydrocodone Bitart/Apap 5-325 [[place] 5MG-325MG] 1 tab PO Q6H PRN PRN 3 Days #10 tab 09/16/20 Lidocaine [Lidoderm Patch] 1 patch TOPICAL DAILY #7 patch 09/16/20 cycloBENZAPRine HCl [Flexeril] 10 mg PO TID PRN #20 tab 09/16/20 Ibuprofen [Motrin] 400 mg PO Q4H PRN PRN #30 tab 09/18/20 The following prescriptions were given: cycloBENZAPRine HCl [Flexeril] 10 mg PO TID PRN #20 tab PRN Reason: Muscle Spasm Prescription Printed Lidocaine [Lidoderm Patch] 1 patch TOPICAL DAILY #7 patch Prescription Printed Ibuprofen [Motrin] 400 mg PO Q4H PRN PRN #30 tab PRN Reason: Pain Score 1-10/Temp > 100.7 F Transmission Status: Pending to [facility] Hydrocodone Bitart/Apap 5-325 [[place] 5MG-325MG] 1 tab PO Q6H PRN PRN 3 Days #10 tab PRN Reason: Pain Prescription Printed Primary Care Physician: Dalton Chanel MD [Primary Care Provider] - Please follow up with your Primary Care Physician in: 1-2 weeks Test Results: Test results from this visit will be discussed in further detail at your follow-up appointment, if applicable. Proposed Discharge Date: 09/18/20
--- NOTE | 2020-09-18 10:59 | DS.PCM_ITS ---
Discharge Date and Diagnosis Date of Admission: 09/16/20 Date of Discharge: 09/18/20 - Primary Discharge Diagnosis Acute Problems: back pain - Secondary Discharge Diagnosis Chronic Problems: Chronic Problems (Last Reviewed 01/02/20 @ 14:20 by Mary Abdalla SANITARY LANDFILL SUPERVISOR, SANITARY LANDFILL SUPERVISOR-C) Anxiety and depression (Chronic) Abnormal PFT (Chronic) MANUEL (obstructive sleep apnea) (Chronic) BiPAP 10/6 cmH2O Hypersomnia (Chronic) Decreased hearing (Chronic) Morbid obesity (Chronic) Depression with anxiety (Chronic) Asthma (Chronic) Hospital Course and Treatment Imaging Results: Diagnostic Data Abdomen/Pelvis CT 09/16/20 15:30 IMPRESSION: Although there is a history of cholecystectomy, a fluid density structure in the jenna hepatis/gallbladder fossa certainly looks like a nondistended gallbladder. Other postoperative fluid collections are possible as above. Common bile duct stent in satisfactory position and no bile duct distention. Electronically Signed: Butch Orozco MD at 16:51 EST , Service support , Operations: None Procedures: None Summary of Care Provided: The patient is a 25 year old F with no significant PMh who was admitted via the ED on 09/16/2020 with a complaint of back pain. She worked at [employer] in [facility] [place], and thinks she aggravated her back at ton end of her work day. Pain was mainly in the paraspinal muscles of her lower back. She was unable to walk. She had no numbness or tingling and no weakness. She was admitted and managed for intractable back pain. Of note, patient had recently had cholecystectomy and the LINDSAY tube was pulled just a few days before admission. CT of the abdomen and pelvis was unremarkable and showed a fluid density structure in the jenna hepatis which look like it nondistended gallbladder though she had apparently had cholecystectomy. Patient work with physical therapy and was put on pain medication namely tramadol and Flexeril as well as ibuprofen. Back pain subsequently resolved and she was able to ambulate on her own successfully. She remained stable and was discharged home on 09/18/2020 and is follow-up with her primary care doctor in 1 to 2 weeks. Patient seen and examined prior to discharge. She felt well and had no complaints. Review of symptoms otherwise negative. Labs and vitals reviewed. Home medication reviewed and reconciled. O/E: Vital Signs Temp Pulse Resp BP Pulse Ox 98.1 F 90 18 143/92 H 97 09/18/20 09:00 09/18/20 09:00 09/18/20 09:00 09/18/20 11:41 09/18/20 09:00 [] General: Alert, Oriented x3, Cooperative, - - super morbid obesity HEENT: Atraumatic, PERRLA, EOMI, Normocephalic Oral: Dry Mucosa Neck: Supple, No JVD, Negative Carotid Bruits Lungs: Clear to auscultation, Normal air movement, No rhonchi, No wheeze Cardiovascular: Regular rate, Regular Rhythm, Normal S1, Normal S2, No murmurs Abdomen: Bowel Sounds Present, Soft, Non Tender, Non-Distended, No Hepato- splenomegaly Extremities: No clubbing, No cyanosis, No edema, Capillary Refill Less than 3 Seconds Skin: No rashes, No breakdown Musculoskeletal: No Tenderness to Palpation of Joints or Extremities Lymphatic: No Cervical, Supraclavicular, or Inguinal Adenopathy Neurological: Cranial nerves II-XII grossly intact, Neuro grossly intact, Motor Exam 5/5 strength throughout Psych/Mental Status: Normal Affect, Appropriate, Alert and oriented to time, place, person, mood and affect Plan is for discharge home today. - Physical Exam Vitals/I&O's: Vital Signs Temp Pulse Resp BP Pulse Ox 98.1 F 90 18 150/97 H 97 09/18/20 09:00 09/18/20 09:00 09/18/20 09:00 09/18/20 09:00 09/18/20 09:00 Oxygen Delivery Method Room Air Weight: 292 lb 0.007 oz Body Mass Index (BMI) 51.7 Intake and Output for Last 24 Hours 09/16/20 09/17/20 09/18/20 23:59 23:59 23:59 Intake Total 1000 / 1220 440 / 440 Balance 1000 / 1220 440 / 440 Current Medications Aripiprazole (Aripiprazole 2 Mg Tablet) 2 mg PO QHS [facility] Last Admin: 09/17/20 21:32 Dose: 2 mg Documented by: Diazepam (Diazepam 5 Mg Tablet) 5 mg PO BID PRN PRN PRN Reason: SPASMS Last Admin: 09/18/20 00:07 Dose: 5 mg Documented by: Ibuprofen (Ibuprofen 400 Mg Tablet) 400 mg PO Q4H PRN PRN PRN Reason: Pain Score 1-10/Temp > 100.7 F Last Admin: 09/17/20 21:19 Dose: 400 mg Documented by: Lidocaine (Lidocaine 5% Patch) 1 patch TOPICAL DAILY [facility]; Protocol Last Admin: 09/18/20 09:14 Dose: 1 patch Documented by: Melatonin (Melatonin 3 Mg Tablet) 3 mg PO QHS PRN PRN PRN Reason: INSOMNIA Sertraline HCl (Sertraline 50 Mg Tablet) 150 mg PO DAILY [facility] Last Admin: 09/18/20 09:15 Dose: 150 mg Documented by: Discharge Diet: Low fat/ Low Cholesterol Discharge Activity: Return to Normal Activity Weight Bearing Status: Weight bearing as tolerated Home Medications: Medications to take at Discharge sertraline 100 mg tablet 150 mg PO DAILY tab 07/13/19 Aripiprazole 2 mg PO QHS 08/16/20 Ibuprofen [Motrin] 400 mg PO Q4H PRN PRN #30 tab 09/18/20 Lidocaine [Lidoderm Patch] 1 patch TOPICAL DAILY #7 patch 09/18/20 cycloBENZAPRine HCl [Flexeril] 5 mg PO TID PRN PRN 5 Days #15 tab 09/18/20 Following Prescriptions Were Given to Patient: cycloBENZAPRine HCl [Flexeril] 5 mg PO TID PRN PRN 5 Days #15 tab PRN Reason: Spasms Transmission Status: Received by [facility] Lidocaine [Lidoderm Patch] 1 patch TOPICAL DAILY #7 patch Transmission Status: Received by [facility] Ibuprofen [Motrin] 400 mg PO Q4H PRN PRN #30 tab PRN Reason: Pain Score 1-10/Temp > 100.7 F Transmission Status: Received by [facility] Primary Care Physician: Dalton Chanel MD [Primary Care Provider] - Please follow up with your Primary Care Physician in: 1-2 weeks Patient Instructions: ED Back Spasm, No Trauma Disposition: Home Minutes spent on discharge:: 35 Patient Condition:: Stable Medical Necessity - Tobacco Use Smoking Status: Former smoker Meaningful Use Info Meaningful Use Diagnoses (Choose all that apply): None applicable OBSV E&M: 28561 Observation care discharge
[2020-09-18 11:41] VITALS: BP 143/92
--- NOTE | 2020-09-18 12:20 | PHA.DC.MR ---
Pharmacy Service has performed discharge medication reconciliation for this patient. The patient's discharge medication list was reviewed for discrepancies and discrepancies were resolved. Home Medications sertraline 100 mg tablet 150 mg PO DAILY tab 07/13/19 Aripiprazole 2 mg PO QHS 08/16/20 Hydrocodone Bitart/Apap 5-325 [[place] 5MG-325MG] 1 tab PO Q6H PRN PRN 3 Days #10 tab 09/16/20 Lidocaine [Lidoderm Patch] 1 patch TOPICAL DAILY #7 patch 09/16/20 cycloBENZAPRine HCl [Flexeril] 10 mg PO TID PRN #20 tab 09/16/20 Ibuprofen [Motrin] 400 mg PO Q4H PRN PRN #30 tab 09/18/20
--- NOTE | 2020-09-18 14:23 | NURSING ---
notified pt. Dr. Garibay sent Flexeril and Lidoderm to [facility], no [facility] prescribed.
== END 2020-09-18 12:06 | disposition home or self-care (01) ==
LOC: ED 16:15 → MS3 20:27
PROVIDERS: Admitting Provider Family Medicine; Emergency Provider Emergency Medicine; PCP Family Medicine; Visit Provider Student in an Organized Health Care Education/Training Program
DX: M54.5 Low back pain (principal); E66.01 Morbid (severe) obesity due to excess calories; G47.33 Obstructive sleep apnea (adult) (pediatric); J45.909 Unspecified asthma, uncomplicated; Z79.899 Other long term (current) drug therapy; Z87.891 Personal history of nicotine dependence; F41.8 Other specified anxiety disorders; Z68.43 Body mass index [BMI] 50.0-59.9, adult
CPT/HCPCS: 74177; 80053; 81001; 85025; 96374; 96375; 97162; 97166; 97530; 99218; 99285; 99406; J7030; Q9967; A4216; G0378; J2405

== ENCOUNTER 2020-10-23 08:46 | Day surgery (SDC) | payer MEDICAID, SELFPAY ==
[2020-09-25 13:10] VITALS: BMI 51.7
[2020-10-02 13:51] VITALS: BMI 51.7
--- NOTE | 2020-10-23 08:58 | PCM.HP.STD ---
Problem List (1) Bile leak Status: Acute History of Present Illness Date of Admission: 10/23/20 The patient is a 25 year old F presents for ERCP with stent removal. The patient had a bile leak following cholecystectomy and a ERCP with stent placement was performed on September 27. Patient has had no issues since surgery. She is here for stent removal. Past Medical History Past Medical History (Chronic Problems): Chronic Problems (Last Reviewed 10/02/20 @ 13:52 by Mona Evans) Anxiety and depression (Chronic) Abnormal PFT (Chronic) MANUEL (obstructive sleep apnea) (Chronic) BiPAP 10/6 cmH2O Hypersomnia (Chronic) Decreased hearing (Chronic) Morbid obesity (Chronic) Depression with anxiety (Chronic) Asthma (Chronic) Medical History: Medical History (Last Reviewed 10/02/20 @ 13:52 by Mona Evans) Herpes simplex (Acute) B00.9 Abnormal PFT (Chronic) R94.2 MANUEL (obstructive sleep apnea) (Chronic) G47.33 BiPAP 10/6 cmH2O Dyspnea (Acute) R06.00 Hypersomnia (Chronic) G47.10 Decreased hearing (Chronic) H91.90 Morbid obesity (Chronic) E66.01 Depression with anxiety (Chronic) F41.8 Asthma (Chronic) J45.909 Fatigue (Resolved) R53.83 Suspected sleep apnea (Inactive) R29.818 Allergies No Known Allergies Allergy (Verified 10/23/20 08:52) Home Medications: Ambulatory Orders Medication Instructions Recorded sertraline 100 mg tablet 150 mg PO DAILY tab 07/13/19 Aripiprazole 2 mg PO QHS 08/16/20 Ibuprofen [Motrin] 400 mg PO Q4H PRN PRN #30 tab 09/18/20 Lidocaine [Lidoderm Patch] 1 patch TOPICAL DAILY PRN 10/17/20 Surgical History: Surgical History (Last Reviewed 10/02/20 @ 13:52 by Mona Evans) History of placement of ear tubes (Resolved) Z96.22 History of tonsillectomy (Resolved) Z90.89 Surgical History: cholecystectomy Smoking Status: Former smoker Tobacco Use: Non-smoker Review of Systems Constitutional: Denies: Anorexia, Chills Cardiovascular: Denies: Chest Pain Respiratory: Denies: Cough Gastrointestinal: Denies: Abdominal Pain, Dyspepsia Genitourinary: Denies: Dysuria Musculoskeletal: Denies: Joint Pain Skin: Denies: Dryness, Jaundice VTE Information - Inpt Only VTE Present on Admission: No VTE Mechan Device Prophylaxis: SCD's - Physical Exam Vitals/I&O's: Body Mass Index (BMI) 51.7 General: Alert, Oriented x3 Neck: No JVD Lungs: Normal air movement Cardiovascular: Regular rate, Regular Rhythm Abdomen: Soft, Non Tender, Non-Distended Extremities: No clubbing Musculoskeletal: No Muscle Wasting Microbiology Past 72 Hours 10/22/20 09:10 Interface Orders SARS-CoV-2 Antigen (Rapid) - Final Assessment/Plan All Active Problems (Last Reviewed 10/02/20 @ 13:52 by Mona Evans) Bile leak (Acute) Herpes simplex (Acute) Dyspnea (Acute) History of placement of ear tubes (Resolved) History of tonsillectomy (Resolved) Fatigue (Resolved) 25-year-old female with history of bile leak 1. Patient is here for ERCP with stent removal. Patient had a resolution of bile leak and I explained ERCP to her in detail as well as stent removal and confirmation of resolution of bile leak. I discussed the risks of the procedure including the limited to bleeding, infection, perforation of bile duct or bowel, pancreatitis. The patient understands the risks and will proceed. Jude Gray MD Pager: [facility] [address] [place] [address], [address] [place] [address] Office:
[2020-10-23 09:15] LABS: Internal QC Validated? YES +Cl - CLEAR BKGD; Pregnancy, Urine Negative Negative
[2020-10-23] MEDS: Lactated Ringers 1,000 ML 100 ML IV (09:16)
[2020-10-23 09:17] VITALS: BP 139/81; PULSE 75; RESP 16; TEMP 36.2; O2SAT 95; BMI 52.2
--- NOTE | 2020-10-23 09:45 | RAD_ITS ---
STUDY: ERCP. REASON FOR EXAM: Female, 25 years old. ERCP with stent removal FLUOROSCOPY TIME (if supplied): ( 66 seconds ) minutes/seconds TECHNIQUE: An ERCP was performed by the surgeon. COMPARISON: None. FINDINGS: Stent removal. RAD/ERCP Biliary Only IMPRESSION: Stent removal. Electronically Signed: Zackary Mathias, at 14:19 EST , Service support ,
--- NOTE | 2020-10-23 10:25 | OP.ERCP_ITS ---
Patient Name: Sherry Patrick Procedure Date: 10/23/2020 9:36 AM Date of : 1995 Age: 25 Procedure: ERCP Indications: Follow-up of bile leak Providers: Jude Gray MD Referring MD: Jude Gray MD Medicines: General Anesthesia Patient Profile: This is a 25 year old female. Refer to note in patient chart for documentation of history and physical. Complications: No immediate complications. Estimated blood loss: Minimal. Procedure: Pre-Anesthesia Assessment: - Prior to the procedure, a History and Physical was performed, and patient medications and allergies were reviewed. The patient's tolerance of previous anesthesia was also reviewed. The risks and benefits of the procedure and the sedation options and risks were discussed with the patient. All questions were answered, and informed consent was obtained. Prior Anticoagulants: The patient has taken no previous anticoagulant or antiplatelet agents. After reviewing the risks and benefits, the patient was deemed in satisfactory condition to undergo the procedure. After obtaining informed consent, the scope was passed under direct vision. Throughout the procedure, the patient's blood pressure, pulse, and oxygen saturations were monitored continuously. The duodenoscope was introduced through the mouth, and advanced to the duodenum and used to inject contrast into the bile duct. The ERCP was accomplished without difficulty. The patient tolerated the procedure well. Scope In: 10:08:39 AM Scope Out: 10:14:20 AM Total Procedure Duration Time 0 hours 5 minutes 41 seconds Findings: One stent was removed from the biliary tree using a snare. A 0.035 inch x 260 cm straight Dreamwire was passed into the biliary tree. The sphincterotome was passed over the guidewire and the bile duct was then deeply cannulated. Contrast was injected. There was no evidence of continued bile leak. The endoscope was withdrawn from the patient. Impression: - One stent was removed from the biliary tree. Recommendation: - Discharge patient to home. - Resume previous diet. Procedure Code(s): --- Professional --- 93226, Endoscopic retrograde cholangiopancreatography (ERCP); with removal of foreign body(s) or stent(s) from biliary/pancreatic duct(s) Diagnosis Code(s): --- Professional --- Z46.59, Encounter for fitting and adjustment of other gastrointestinal appliance and device K83.8, Other specified diseases of biliary tract CPT copyright 2017 [employer]. All rights reserved. The codes documented in this report are preliminary and upon landscape architecture teacher review may be revised to meet current compliance requirements. Jude Gray MD 10/23/2020 10:24:51 AM This report has been signed electronically. Number of Addenda: 0 Note Initiated On: 10/23/2020 9:36 AM
--- NOTE | 2020-10-23 10:25 | OP.CCLET_ITS ---
10/23/2020 Stephanie Johnson MD [address] [place] [address] Re : ERCP procedure for Sherry Patrick Dear Dr. Johnson This procedure was performed on Friday, October 23, 2020. My impressions and recommendations are as follows: Impressions : - One stent was removed from the biliary tree. Recommendations : - Discharge patient to home. - Resume previous diet. My findings are described in the full procedure note, which is enclosed. If I can be of further assistance, please feel free to contact me at Doctor phone number(s): , Work: . Sincerely, Jude Gray MD 10/23/2020 10:24:51 AM This report has been signed electronically.
[2020-10-23 10:30] VITALS: BP 139/81; BP 140/102; PULSE 86; RESP 16; TEMP 36.4; O2SAT 95
[2020-10-23 10:45] VITALS: BP 119/67; BP 139/81; PULSE 73; RESP 16; O2SAT 97
[2020-10-23 10:50] VITALS: BP 111/94; BP 139/81; PULSE 72; RESP 16; TEMP 36.4; O2SAT 98
== END 2020-10-23 11:18 | disposition home or self-care (01) ==
LOC: EN 08:48 → AC 08:48
PROVIDERS: Anesthesiology; PCP Family Medicine; Referring Provider Surgery; Visit Provider Surgery
PROC: (CPT 43260; principal; 2020-10-23 09:30)
DX: Z46.59 Encounter for fitting and adjustment of other gastrointestinal appliance and device (principal); K83.8 Other specified diseases of biliary tract; Z20.828 Contact with and (suspected) exposure to other viral communicable diseases; F41.8 Other specified anxiety disorders; G47.33 Obstructive sleep apnea (adult) (pediatric); J45.909 Unspecified asthma, uncomplicated; E66.01 Morbid (severe) obesity due to excess calories; Z68.43 Body mass index [BMI] 50.0-59.9, adult; Z90.49 Acquired absence of other specified parts of digestive tract; Z79.899 Other long term (current) drug therapy; Z87.891 Personal history of nicotine dependence
CPT/HCPCS: 43275; 74328; 76000; 81025; 87426; C9803; J7120; J2405

== ENCOUNTER → 2020-12-05 08:28 | Outpatient (CLI) | payer MEDICAID, SELFPAY ==
[2020-12-05 10:45] LABS: Anion Gap 8 (5-15); BUN 14 mg/dL (7-18); BUN/Creat Ratio 21.1 RATIO (10-20); Calcium,Total 9.3 mg/dL (8.5-10.1); Chloride 106 mmol/L (98-107); Cholesterol 183 mg/dL (200); Creatinine, Serum 0.66 mg/dL (0.55-1.02); EST Glomerular Filtration Rate 114 mL/min (>60); Est Glom Filt Rate - Afr Amer 137 mL/min (>60); Glucose 118 mg/dL (74-106); High Density Lipoprotein 44 mg/dL; Potassium 3.9 mmol/L (3.5-5.1); Sodium Level 138 mmol/L (136-145); Triglycerides 208 mg/dL; Very Low Density Lipoprotein 42 mg/dL (5-40)
== END ==
PROVIDERS: PCP Family Medicine; Visit Provider Nurse Practitioner Adult Health
DX: R73.9 Hyperglycemia, unspecified (principal); Z13.220 Encounter for screening for lipoid disorders
CPT/HCPCS: 36415; 80048; 80061

== ENCOUNTER → 2020-12-13 08:48 | Outpatient (CLI) | payer MEDICAID, SELFPAY ==
[2020-12-13 10:55] LABS: T4 Free Direct 1.18 ng/dL (0.76-1.46)
== END ==
PROVIDERS: PCP Family Medicine; Referring Provider Family Medicine; Visit Provider Family Medicine
DX: E03.9 Hypothyroidism, unspecified (principal)
CPT/HCPCS: 36415; 84439; 84443

== ENCOUNTER → 2021-05-13 14:44 | Outpatient (CLI) | payer MEDICAID, SELFPAY ==
[2021-04-03 06:47] VITALS: BMI 53.8
--- NOTE | 2021-05-13 14:45 | CT_ITS ---
STUDY: CT SOFT TISSUE NECK WITH CONTRAST REASON FOR EXAM: Female, 26 years old. Localized swelling, mass and lump, neck X 2 YRS RADIATION DOSAGE (If Supplied By Facility): CTDIvol = ( 19.39 ) mGy, DLP = ( 520.36 ) mGycm TECHNIQUE: The patient was scanned in a multi-detector CT scanner. High resolution transaxial imaging was performed following intravenous administration of IV 75ML ISOVUE 300. Sagittal and coronal images were reconstructed. Individualized dose optimization techniques were used for this CT. COMPARISON: None. FINDINGS: The palpable abnormality corresponds to 1.2 cm x 0.7 cm calcified nodule in the subcutaneous tissue just deep to the skin overlying the inferior aspect of the right side of the neck. Normal bilateral parotid glands. Normal bilateral violin teacher spaces. Normal bilateral parapharyngeal spaces. Normal bilateral carotid spaces. Normal bilateral sublingual and submandibular glands and spaces. Small benign-appearing lymph nodes are seen in the submental region. Normal visualized nasopharynx. Normal retropharyngeal space. Normal perivertebral space. Normal visualized bilateral faucial tonsils. The visualized tongue, tongue base and oropharynx are normal. There are minimally enlarged lymph nodes of the neck, with preservation of normal chivo architecture, consistent with a reactive lymph hyperplasia. There is no demonstrated solid or cystic mass lesion. There is no abnormal contrast enhancement. Normal epiglottis, bilateral vallecula and hypopharynx. The pre-epiglottic and paraglottic adipose spaces are normal. Normal visualized bilateral piriform sinuses, aryepiglottic folds, vocal cords, and arytenoid-cricoid articulations. Normal subglottic trachea. Normal bilateral lobes of the thyroid gland. Normal visualized pulmonary apices. Normal visualized paranasal sinuses. Normal visualized cervical spine. CT/Soft Tissue Neck WITH Contrast IMPRESSION: The palpable abnormality corresponds to a 1.2 cm x 0.7 cm densely calcified nodule in the subcutaneous tissue overlying the inferior aspect of the right side of the neck. Electronically Signed: Zackary Mathias MD at 9:11 EDT , Service support ,
== END ==
PROVIDERS: PCP Student in an Organized Health Care Education/Training Program; Referring Provider Otolaryngology; Visit Provider Otolaryngology
DX: R22.1 Localized swelling, mass and lump, neck (principal)
CPT/HCPCS: 70491; Q9967

== ENCOUNTER 2021-07-02 06:25 | Day surgery (SDC) | payer MEDICAID, SELFPAY ==
[2021-04-03 06:47] VITALS: BMI 53.8
[2021-07-02 07:26] VITALS: PULSE 72; RESP 16; TEMP 36.3; O2SAT 98; BMI 53.8
[2021-07-02 07:36] LABS: Bedside Glucose 108 mg/dL (70-110)
[2021-07-02] MEDS: Lactated Ringers 1,000 ML 100 ML IV (07:47)
--- NOTE | 2021-07-02 08:05 | MASS_PTH ---
PATIENT: FLORENCIA VILLARREAL [place] [facility] [place][id number] AGE/SX: 26/F ROOM: RE07/02/[address]: Dr. Leroy Cortez MD : 1995 BED: DIS: 07/02/2021 SPEC #: [id number] RECD: 07/02/21 09:41 STATUS: TAYLOR REKaleb #: [id number] PRABHAKAR: 07/02/21 08:[address]: Leroy Cortez DEPT: SURGICAL PATHOLOGY RECD BY: Dagmar Baez ENTERED: 07/02/21 12:29 SP TYPE: Mass OTHR DR: Dr. 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 ZOILA:adele 07/05/2021 COMMENT Case has been reviewed in consultation with Dr. Dias who concurs with the above diagnosis. IDC:AM MICROSCOPIC DESCRIPTION Slides are reviewed. GROSS DESCRIPTION Received in fixative is one container labeled with the patient's name and designated right neck lesion. The specimen consists of an ovoid, calcified fragment of elizondo-pink tissue measuring 1.5 x 1 x 0.7 cm. The specimen is sectioned and totally submitted in one cassette after decalcification. / AM:adele 07/02/21 TC:1 CPT: 93001, 31079
--- NOTE | 2021-07-02 08:15 | PCM.DC ---
Discharge Instructions Diet Discharge Diet: No restrictions Activity Discharge Activity: Return to Normal Activity Dressing / Incision Call your doctor if your incision/area has: Foul Smelling Discharge Additional Dressing/Incision Instructions:: mupirocin to incision twice daily Follow Up Care Please Follow Up With: trever When: 1 week Test Results: Test results from this visit will be discussed in further detail at your follow-up appointment, if applicable. Discharge Plan Admission Attending Provider: Marcin Cortez Primary Care Provider: Segundo Flores Discharge Orders/Prescriptions Prescriptions: No Action metformin 500 mg tablet 500 mg PO BID RF: 0 aripiprazole [Abilify] 2 MG tablet 2 mg PO QHS RF: 0 ibuprofen 400 MG tablet 400 mg PO Q4H PRN PRN (Reason: Pain Score 1-10/Temp > 100.7 F) Qty: 30 RF: 0 testosterone enanthate 50 mg/0.5 mL Auto-Injector 100 mg SUBCUT .QOWEEK RF: 0 bupropion HCl 75 mg tablet 75 mg PO BID RF: 0 escitalopram oxalate 10 mg tablet 10 mg PO DAILY RF: 0 cholecalciferol (vitamin D3) [Vitamin D3] 125 mcg (5,000 unit) Tablet 125 mcg PO DAILY RF: 0 Farxiga 5 mg tablet 5 mg PO DAILY RF: 0 Trulicity 0.75 mg/0.5 mL pen injector 0.75 mg SUBCUT WE RF: 0 Disposition Discharge Orders: Discharge Patient (Routine); Ordered 07/02/21 Ordered By: Dr. Marcin Cortez
--- NOTE | 2021-07-02 08:16 | PCM.OPRPT ---
Report of Operation Date of Procedure: 07/02/21 Pre-Operative Diagnosis: right neck mass Post-Operative Diagnosis: right neck mass Surgery/Procedure Performed:: excision right neck mass Surgeon: Marcin Cortez Type of Anesthesia: General Description of Procedure: on the day of the procedure, after appropriate informed consent was obtained, the patient was brought to the operating room and placed in supine position on the operating table. she was placed under anesthesia by the anesthesiologist. the right neck was injected with lidocaine/epinephrine and prepped/draped in sterile fashion. a 1cm incision was made transverseley with a 15 blade in the right low neck over the mass. the subcutaneous tissues were dissected and what appeared to be a firm lipomatous mass was circumferentially dissected with the iris scissor and removed. hemostasis was achieved. the incision was closed with 4-0 vicryl and 4-0 monocryl. she was awoken from anesthesia and transferred to the pacu in stable condition.
[2021-07-02] MEDS: Lidocaine 1% /Epi 1:100 (20ml) 20 ML Vial (08:30)
[2021-07-02] MEDS: Mupirocin Ointment 22gm Tube 1 APPLIC (08:48)
[2021-07-02 08:55] VITALS: BP 102/65; BP 130/70; PULSE 88; RESP 16; TEMP 36.2; O2SAT 92
[2021-07-02 09:00] VITALS: BP 109/65; BP 130/70; PULSE 88; RESP 16; O2SAT 92
[2021-07-02 09:15] VITALS: BP 110/53; BP 130/70; PULSE 88; RESP 16; O2SAT 92
[2021-07-02 09:30] VITALS: BP 104/55; BP 130/70; PULSE 82; RESP 16; TEMP 36.3; O2SAT 92
[2021-07-02 09:35] LABS: Bedside Glucose 105 mg/dL (70-110)
[2021-07-02 10:22] VITALS: BP 104/60; BP 130/70; PULSE 82; RESP 16; TEMP 36.2; O2SAT 96
== END 2021-07-02 10:29 | disposition home or self-care (01) ==
LOC: SDC 06:26 → AC 06:28
PROVIDERS: PCP Student in an Organized Health Care Education/Training Program; Referring Provider Otolaryngology; Visit Provider Otolaryngology
PROC: (CPT 21555; principal; 2021-07-02 07:50)
DX: D23.4 Other benign neoplasm of skin of scalp and neck (principal); F41.8 Other specified anxiety disorders; H91.90 Unspecified hearing loss, unspecified ear; E66.01 Morbid (severe) obesity due to excess calories; Z68.43 Body mass index [BMI] 50.0-59.9, adult; G47.33 Obstructive sleep apnea (adult) (pediatric); E11.9 Type 2 diabetes mellitus without complications; J45.909 Unspecified asthma, uncomplicated; Z87.19 Personal history of other diseases of the digestive system; Z79.84 Long term (current) use of oral hypoglycemic drugs; Z79.899 Other long term (current) drug therapy
CPT/HCPCS: 00300; 21555; 82962; 88305; 88311; J7120; J2405